=== PATIENT | male | born 1940 | race Hispanic/Latino ===

== ENCOUNTER 2022-01-25 22:31 | Emergency (ER) | payer OTHER ==
[2022-01-25 23:47] LABS: Urine Bacteria <20 /HPF (NONE SEEN); Urine RBC >50 /HPF (NONE SEEN)
[2022-01-25 23:48] LABS: Urine Mucus 1+ /HPF (NONE SEEN)
[2022-01-26 00:19] LABS: Absolute Lymphocytes (CBC) 2.4 K/uL (0.7-4.9); Hematocrit 41.6 % (39.6-49.0); MPV 8.4 fL (7.6-11.3); RBC Red Blood Cell Count 4.51 M/uL (4.33-5.43)
[2022-01-26 00:24] LABS: Protime INR 0.96
[2022-01-26] MEDS ORDERED: NACL 0.9% IRR SOLN 2,000 ML IRR ONE (00:24)
[2022-01-26 00:43] LABS: Potassium 4.4 mmol/L (3.5-5.1)
[2022-01-26] MEDS ORDERED: MAGNESIUM SULFATE 1 gm IVPB 1 GM/100 ML BAG IV ONE (01:39)
[2022-01-26] MEDS ORDERED: TAMSULOSIN 0.4 MG SR CAP ONE (01:39)
--- NOTE | 2022-01-26 02:22 | EDPHYS ---
Physician Documentation [facility] Name: Desean Noland Age: 81 yrs Sex: Male : 1940 Arrival Date: 01/25/2022 Time: 22:35 Bed 20 Private MD: ED Physician Leighton Christensen HPI: 01/26 02:17 This 81 yrs old Male presents to ER via Ambulatory with complaints of Urinary rn Problem. 02:17 The patient presents with urinary symptoms, hematuria. Onset: The symptoms/episode rn began/occurred yesterday. Modifying factors: The symptoms are alleviated by nothing, the symptoms are aggravated by urinating. Associated signs and symptoms: Pertinent negatives: abdominal pain, fever, nausea, vomiting. Severity of symptoms: At their worst the symptoms were mild, in the emergency department the symptoms are unchanged. The patient has experienced similar episodes in the past. The patient has not recently seen a physician. Pt reports peeing blood since yesterday, small amount. Has known bladder stone and hx of kidney stones but does not hurt or feel like kidney stone. Does not take blood thinners. NO trauma.. Historical: - Allergies: 01/25 23:09 Iodine; sm5 - PMHx: 23:09 Hypertension; Kidney stones; sm5 - Immunization history:: Client reports receiving the 2nd dose of the Covid vaccine. - Social history:: Smoking status: Patient/guardian denies using tobacco, but has a distant history of tobacco abuse. - Family history:: not pertinent. - Hospitalizations: : No recent hospitalization is reported. ROS: 01/26 02:17 Constitutional: Negative for fever, chills, and weight loss, Eyes: Negative for injury, rn pain, redness, and discharge, Neck: Negative for injury, pain, and swelling, Cardiovascular: Negative for chest pain, palpitations, and edema, Respiratory: Negative for shortness of breath, cough, wheezing, and pleuritic chest pain, Abdomen/GI: Negative for abdominal pain, nausea, vomiting, diarrhea, and constipation, Back: Negative for injury and pain, : + hematuria MS/Extremity: Negative for injury and deformity, Skin: Negative for injury, rash, and discoloration, Neuro: Negative for headache, weakness, numbness, tingling, and seizure. Exam: 02:17 Constitutional: This is a well developed, well nourished patient who is awake, alert, rn and in no acute distress. Head/Face: Normocephalic, atraumatic. Cardiovascular: Regular rate and rhythm. No pulse deficits. Respiratory: No increased work of breathing, no retractions or nasal flaring. Abdomen/GI: Soft, non-tender Skin: Warm, dry MS/ Extremity: Pulses equal, no cyanosis. Neuro: Awake and alert, GCS 15 Vital Signs: 01/25 23:08 BP 174 / 84; Pulse 62; Resp 17; Temp 98(O); Pulse Ox 97% on R/A; Weight 87.09 kg; 5 Height 5 ft. 6 in. (167.64 cm); Pain 0/10; 01/26 00:07 BP 151 / 66; Pulse 58; Resp 18; Pulse Ox 96% on R/A; 5 02:54 BP 147 / 58; Pulse 63; Resp 17; Pulse Ox 100% on R/A; [facility] 01/25 23:08 Body Mass Index 30.99 (87.09 kg, 167.64 cm) [facility] MDM: 01/25 22:50 Patient medically screened. rn 01/26 02:17 Differential diagnosis: UTI, kidney stone, bladder stone. Data reviewed: vital signs, rn nurses notes, lab test result(s), radiologic studies, CT scan, and as a result, I will discharge patient. Counseling: I had a detailed discussion with the patient and/or guardian regarding: the historical points, exam findings, and any diagnostic results supporting the discharge/admit diagnosis, lab results, radiology results, the need for outpatient follow up, to return to the emergency department if symptoms worsen or persist or if there are any questions or concerns that arise at home. Response to treatment: the patient's symptoms have mildly improved after treatment, and as a result, I will discharge patient. Special discussion: I discussed with the patient/guardian in detail that at this point there is no indication for admission to the hospital. It is understood, however, that if the symptoms persist or worsen the patient needs to return immediately for re-evaluation. ED course: CT shows distal ureteral stone, patient is completely pain free. Hematuria clearing with bladder irrigation. Normal creatinine. Normal WBC. Will dc home with pcp and urology f/u. . 01/25 23:02 Order name: Urine Culture rn 01/25 23:02 Order name: Urine Microscopic Only; Complete Time: 23:49 rn 01/25 23:58 Order name: CBC with Diff; Complete Time: 01:31 rn 01/25 23:58 Order name: Basic Metabolic Panel; Complete Time: 01: rn 01/25 23:58 Order name: Protime (+inr); Complete Time: 01: rn 01/25 23:58 Order name: IV Start; Complete Time: 00:06 rn 01/25 23:58 Order name: Ptt, Activated; Complete Time: 01: rn 01/25 23:58 Order name: CT Stone Protocol rn 01/25 23:58 Order name: Bladder Irrigation; Complete Time: 01:01 rn Administered Medications: 01:43 Drug: Magnesium Sulfate 1 grams Route: IVPB; Infused Over: 1 hrs; Site: right hand; sm5 02:55 Follow up: Response: No adverse reaction; IV Status: Completed infusion; IV Intake: sm5 100ml 01:43 Drug: Flomax (tamsulosin) 0.4 mg Route: PO; sm5 02:11 Follow up: Response: No adverse reaction sm5 Disposition Summary: 01/26/22 02:21 Discharge Ordered Location: Home rn Problem: new rn Symptoms: have improved rn Condition: Stable rn Diagnosis - Calculus of ureter rn - Hematuria, unspecified rn Followup: rn - With: Antwan Barrientos MD - When: As needed - Reason: Recheck today's complaints, Re-evaluation by your physician Discharge Instructions: - Discharge Summary Sheet rn - Hematuria, Adult rn - Kidney Stones rn - Dietary Guidelines to Help Prevent Kidney Stones rn Forms: - Medication Reconciliation Form rn - Thank You Letter rn - Antibiotic furnace erector - Prescription Opioid Use rn Prescriptions: - Tramadol 50 mg Oral Tablet - take 1 tablet by ORAL route every 8 hours as needed; 12 tablet; Refills: 0, rn Product Selection Permitted - Flomax 0.4 mg Oral capsule - take 1 capsule by ORAL route once daily 1/2 hour following the same meal each rn day; 7 capsule; Refills: 0, Product Selection Permitted - cefpodoxime 100 mg Oral Tablet - take 2 tablets by ORAL route every 12 hours for 10 days take with food; 40 rn tablet; Refills: 0, Product Selection Permitted Signatures: Dispatcher [employer] Leighton Adam MD MD rn Joan Evans RN RN [email or web address] Corrections: (The following items were deleted from the chart) 01/25 23:13 23:05 URINALYSIS+U.LAB.BRZ ordered. EDMS EDMS
--- NOTE | 2022-01-26 02:22 | ER ---
Nurse's Notes [facility] Name: Desean Noland Age: 81 yrs Sex: Male : 1940 Arrival Date: 01/25/2022 Time: 22:35 Bed 20 Private MD: Diagnosis: Calculus of ureter;Hematuria, unspecified Presentation: 01/25 23:08 Chief complaint: Patient states: started having blood in his urine and burning around sm5 8am this morning, noticed small blood clots but still able to urinate. Coronavirus screen: Vaccine status: Patient reports receiving the 2nd dose of the covid vaccine. Ebola Screen: No symptoms or risks identified at this time. Initial Sepsis Screen: Does the patient meet any 2 criteria? No. Patient's initial sepsis screen is negative. Does the patient have a suspected source of infection? No. Patient's initial sepsis screen is negative. Risk Assessment: Do you want to hurt yourself or someone else? Patient reports no desire to harm self or others. Onset of symptoms was January 25, 2022. 23:08 Method Of Arrival: Ambulatory [facility] 23:08 Acuity: RAMESH 4 5 Triage Assessment: 23:09 General: Appears in no apparent distress. Behavior is cooperative. Pain: Denies pain. sm5 EENT: No deficits noted. Neuro: No deficits noted. Mejia Agitation-Sedation Scale (RASS): 0 - Alert and Calm Level of Consciousness is awake, alert, obeys commands, Oriented to person, place, time, situation. Cardiovascular: No deficits noted. Capillary refill < 3 seconds Patient's skin is warm and dry. Respiratory: No deficits noted. Airway is patent Trachea midline Respiratory effort is even, unlabored. : Urine is blood tinged, Reports burning with urination. Historical: - Allergies: 23:09 Iodine; sm5 - PMHx: 23:09 Hypertension; Kidney stones; sm5 - Immunization history:: Client reports receiving the 2nd dose of the Covid vaccine. - Social history:: Smoking status: Patient/guardian denies using tobacco, but has a distant history of tobacco abuse. - Family history:: not pertinent. - Hospitalizations: : No recent hospitalization is reported. Screenin:10 Abuse screen: Denies threats or abuse. Denies injuries from another. Nutritional sm5 screening: No deficits noted. Tuberculosis screening: No symptoms or risk factors identified. Fall Risk None identified. Assessment: 23:30 Reassessment: see triage assessment. [facility] 01/26 00:30 Reassessment: No changes from previously documented assessment. Patient and/or family [facility] updated on plan of care and expected duration. Pain level reassessed. 01:30 Reassessment: 3 way catheter irrigation running clear. [facility] 02:54 Reassessment: No changes from previously documented assessment. Patient is alert, [facility] oriented x 3, equal unlabored respirations, skin warm/dry/pink. Vital Signs: 01/25 23:08 BP 174 / 84; Pulse 62; Resp 17; Temp 98(O); Pulse Ox 97% on R/A; Weight 87.09 kg; 5 Height 5 ft. 6 in. (167.64 cm); Pain 0/10; 01/26 00:07 BP 151 / 66; Pulse 58; Resp 18; Pulse Ox 96% on R/A; 5 02:54 BP 147 / 58; Pulse 63; Resp 17; Pulse Ox 100% on R/A; 5 01/25 23:08 Body Mass Index 30.99 (87.09 kg, 167.64 cm) [facility] ED Course: 01/25 22:35 Patient arrived in ED. ja2 22:50 Leighton Christensen MD is Attending Physician. rn 22:55 Joan Evans, FRANCES is Primary Nurse. [facility] 23:09 Triage completed. 5 23:10 Arm band placed on right wrist. 5 23:10 Patient has correct armband on for positive identification. Bed in low position. Call [facility] light in reach. Side rails up X2. Pulse ox on. NIBP on. 23:10 No provider procedures requiring assistance completed. 5 23:10 Urine Culture Sent. sm5 23:10 Urine Microscopic Only Sent. [facility] 01/26 00:06 CBC with Diff Sent. 5 00:06 Basic Metabolic Panel Sent. 5 00:07 Ptt, Activated Sent. 5 00:07 Protime (+inr) Sent. 5 00:07 Inserted saline lock: 20 gauge in right antecubital area, using aseptic technique. [facility] Blood collected. 00:50 CT Stone Protocol In Process Unspecified. EDAK 01:01 3-way catheter inserted, using sterile technique, 16 Fr. [facility] 02:21 Antwan Barrientos MD is Referral Physician. rn 02:[address] catheter removed prior to discharge. sm5 02:55 IV discontinued, intact, bleeding controlled, No redness/swelling at site. Pressure 5 dressing applied. Administered Medications: 01:43 Drug: Magnesium Sulfate 1 grams Route: IVPB; Infused Over: 1 hrs; Site: right hand; sm5 02:55 Follow up: Response: No adverse reaction; IV Status: Completed infusion; IV Intake: sm5 100ml 01:43 Drug: Flomax (tamsulosin) 0.4 mg Route: PO; sm5 02:11 Follow up: Response: No adverse reaction 5 Medication: 01/25 23:10 VIS not applicable for this client. sm5 Intake: 01/26 02:55 IV: 100ml; Total: 100ml. 5 Outcome: 02:21 Discharge ordered by . rn 02:54 Discharged to home ambulatory. sm5 02:54 Condition: stable 02:54 Discharge instructions given to patient, Instructed on discharge instructions, follow up and referral plans. medication usage, Demonstrated understanding of instructions, follow-up care, medications, Prescriptions given X 3. 02:55 Patient left the ED. 5 Signatures: Dispatcher [employer] EDMS Leighton Christensen MD MD rn Alexander, Jessica ja2 Mazur, Sarah, RN RN 5 Corrections: (The following items were deleted from the chart) 01/25 23:13 23:10 URINALYSIS+U.LAB.BRZ drawn and sent. [facility] EDMS
[2022-01-26 03:29] VITALS: TEMP 98
[2022-01-26 03:32] VITALS: BP 147/58; O2SAT 100
--- NOTE | 2022-01-27 12:09 | RAD REPORT ---
EXAM DESCRIPTION: CT - Stone Protocol - 01/26/2022 6:56 am CLINICAL HISTORY: The patient is 81 years old and is Male; hematuria, hx of kidney stones and bladde r stone TECHNIQUE: Axial computed tomography images of the abdomen and pelvis without intravenous contrast. Sagittal and coronal reformatted images were created and reviewed. This CT exam was performed usi ng one or more of the following dose reduction techniques: automated exposure control, adjustment o f the mA and/or kV according to patient size, and/or use of iterative reconstruction technique. COMPARISON: No relevant prior studies available. FINDINGS: Lung bases: Unremarkable. No mass. No consolidation. ABDOMEN: Liver: Numerous thin-walled cysts throughout the liver measuring up to 2 cm. Gallbladder and bile ducts: Unremarkable. No calcified stones. No ductal dilation. Pancreas: Unremarkable. No ductal dilation. Spleen: Unremarkable. No splenomegaly. Adrenals: Unremarkable. No mass. Kidneys and ureters: 9 mm stone in the lower right ureter near the right UVJ. Mild right perinep hric stranding. No hydronephrosis. Nonobstructing calcifications in the kidneys bilaterally. Stomach and bowel: Unremarkable. No obstruction. No mucosal thickening. PELVIS: Appendix: The appendix is normal. Bladder: Large 13 mm stone in the bladder at the right UVJ. Reproductive: Unremarkable as visualized. ABDOMEN and PELVIS: Intraperitoneal space: Unremarkable. No free air. No significant fluid collection. Bones/joints: 7 mm of anterolisthesis of L5 on S1 with bilateral pars defects. Bridging osteophytosis throughout the lumbar spine. No acute fracture. No dislocation. Soft tissues: Unremarkable. Vasculature: Scattered atherosclerotic vascular calcifications. No abdominal aortic aneurysm. Lymph nodes: Unremarkable. No enlarged lymph nodes. IMPRESSION: 1. 9 mm stone in the lower right ureter near the right UVJ. Mild right perinephric str anding. No hydronephrosis. 2. Large 13 mm stone in the bladder at the right UVJ. Electronically signed by: Kody Jackson MD 01/26/2022 1:22 AM CDT Due to temporary technical issues with the PACS/Fluency reporting system, reports are being signed by the in house radiologist without review as a courtesy to ensure prompt reporting. The interpreting r adiologist is fully responsible for the content of the report.
== END 2022-01-26 02:55 | disposition home or self-care (01) ==
LOC: ER 22:31
DX: N20.1 Calculus of ureter (principal); I10 Essential (primary) hypertension; Z87.442 Personal history of urinary calculi; Z91.048 Other nonmedicinal substance allergy status
CPT/HCPCS: 87088; 85025; 87086; 80048; 36415; 85610; 85730; 81015; 76377; 74176; J3475; 96365; 99284

== ENCOUNTER 2022-01-28 15:18 | Emergency (ER) | payer OTHER ==
[2022-01-28 17:14] LABS: Urine Blood 3+ (Negative); Urine Glucose Negative (Negative); Urine Protein 1+ (Negative); Urine Specific Gravity >=1.030 (1.005-1.030); Urine pH 6.5 (5.0-7.0)
[2022-01-28 17:16] LABS: Absolute Lymphocytes (CBC) 2.6 K/uL (0.7-4.9); Hematocrit 40.6 % (39.6-49.0); Lymphocytes % 40.4 % (15.3-44.8); MPV 8.4 fL (7.6-11.3); RBC Red Blood Cell Count 4.36 M/uL (4.33-5.43)
--- NOTE | 2022-01-28 17:23 | RAD REPORT ---
EXAM DESCRIPTION: RAD - Chest Single View - 01/28/2022 4:59 pm CLINICAL HISTORY: hematuria COMPARISON: CHEST PA AND LAT 2 VIEW dated 08/20/2012 FINDINGS: Lines: None. Lungs: No evidence of edema or pneumonia. Pleural: No significant pleural effusions or pneumothorax. Cardiac: Mild cardiomegaly. Bones: No acute fractures. Other: IMPRESSION: No acute cardiopulmonary disease.
[2022-01-28 17:26] LABS: Urine Bacteria <20 /HPF (NONE SEEN); Urine RBC TNTC /HPF (NONE SEEN)
[2022-01-28 17:34] LABS: Albumin 3.8 g/dL (3.4-5.0); Bilirubin Direct 0.2 mg/dL (0-0.2); Bilirubin Total 0.5 mg/dL (0.2-1.0); Magnesium 2.5 mg/dL (1.8-2.4); Protein, Total 7.6 g/dL (6.4-8.2)
[2022-01-28] MEDS ORDERED: LIDOCAINE VISCOUS 2% SOLN 15 ML UDC ONE (18:17)
--- NOTE | 2022-01-28 19:00 | RAD REPORT ---
EXAM DESCRIPTION: US - Renal Ultrasound-Complete - 01/28/2022 6:51 pm CLINICAL HISTORY: hematuria COMPARISON: Stone Protocol dated 01/26/2022 FINDINGS: Both kidneys are normal in size, shape and echotexture. The right kidney measures 13.6 cm. No hydronephrosis, focal mass or perinephric fluid. The left kidney measures 11.3 cm. No hydronephrosis, focal mass or perinephric fluid. The bladder is decompressed via Mai catheter. IMPRESSION: Unremarkable renal sonogram. No evidence of hydronephrosis.
[2022-01-28] MEDS ORDERED: MORPHINE 4 MG/ML SYR ONE (19:33)
[2022-01-28] MEDS ORDERED: ONDANSETRON 4 MG/2 ML VIAL ONE (19:33)
--- NOTE | 2022-01-28 19:39 | ER ---
Nurse's Notes [facility] Name: Desean Noland Age: 81 yrs Sex: Male : 1940 Arrival Date: 01/28/2022 Time: 15:20 Bed 6 Private MD: Sharon Novoa Diagnosis: Calculus of ureter;Hematuria, unspecified Presentation: 01/28 15:39 Chief complaint: Patient states: Was seen in ED on Thursday for blood in urine and was vg1 told to come back if it didn't clear up. Pt states 'there is still blood' and has urine frequency and burning upon urination. Denies NV or ABD pain. Coronavirus screen: Vaccine status: Patient reports receiving the 2nd dose of the covid vaccine. Client denies travel out of the [place] in the last 14 days. Ebola Screen: Patient denies exposure to infectious person. Patient denies travel to an Ebola-affected area in the 21 days before illness onset. Initial Sepsis Screen: Does the patient meet any 2 criteria? No. Patient's initial sepsis screen is negative. Does the patient have a suspected source of infection? No. Patient's initial sepsis screen is negative. Risk Assessment: Do you want to hurt yourself or someone else? Patient reports no desire to harm self or others. Onset of symptoms was January 25, 2022. 15:39 Method Of Arrival: Ambulatory vg1 15:39 Acuity: RAMESH 3 vg1 Triage Assessment: 15:41 General: Appears comfortable, Behavior is calm, cooperative. Pain: Denies pain. : vg1 Reports burning with urination, urinary frequency, blood in urine. Historical: - Allergies: 15:41 Iodine; vg1 - PMHx: 15:41 Hypertension; Kidney stones; vg1 - Immunization history:: Client reports receiving the 2nd dose of the Covid vaccine. - Social history:: Smoking status: Patient denies any tobacco usage or history of. Screenin:17 Abuse screen: Denies threats or abuse. Denies injuries from another. Nutritional jg9 screening: No deficits noted. Tuberculosis screening: No symptoms or risk factors identified. Fall Risk None identified. Assessment: 17:34 Reassessment: No changes from previously documented assessment. Patient and/or family jg9 updated on plan of care and expected duration. Pain level reassessed. Patient is alert, oriented x 3, equal unlabored respirations, skin warm/dry/pink. Patient reports burning around penis hole-esteban just placed. 19:18 Reassessment: Patient and/or family updated on plan of care and expected duration. Pain vc1 level reassessed. Patient is alert, oriented x 3, equal unlabored respirations, skin warm/dry/pink. Patient denies pain at this time. 19:18 Reassessment: 325 mL of urine emptied from urinal-patient was given Lasix prior to jg9 transfusion. Vital Signs: 15:39 BP 136 / 58; Pulse 67; Resp 16; Temp 99.0(TE); Pulse Ox 97% on R/A; Weight 87.09 kg; vg1 Height 5 ft. 6 in. (167.64 cm); Pain 0/10; 18:05 BP 155 / 70; Pulse 61; Resp 15; Pulse Ox 99% ; jl7 19:16 BP 181 / 68; Pulse 58; Resp 15; Pulse Ox 98% ; vc1 19:45 BP 153 / 64; Pulse 59; Resp 16; Pulse Ox 96% ; vc1 20:38 BP 138 / 67; Pulse 60; Resp 17; Pulse Ox 97% ; vc1 15:39 Body Mass Index 30.99 (87.09 kg, 167.64 cm) vg1 ED Course: 15:20 Patient arrived in ED. mr 15:21 Sommer Sharon is Private Physician. mr 15:28 [facility]. cp 15:28 Jack Tellez MD is Attending Physician. cp 15:41 Triage completed. vg1 15:41 Arm band placed on. vg1 16:16 Jesi Tejada, FRANCES is Primary Nurse. jg9 16:30 Client placed on continuous cardiac and pulse oximetry monitoring. NIBP monitoring jl7 applied. 17:01 XRAY Chest (1 view) In Process Unspecified. EDMS 17:17 Patient has correct armband on for positive identification. Bed in low position. Call jg9 light in reach. Side rails up X 1. 17:17 Esteban cath inserted, using sterile technique, 16 Fr., by mn, balloon inflated, to jg9 gravity drainage, urine specimen collected. bleeding noted leaking from around the Esteban-this nurse is waiting for 3 way catheter. 17:45 Esteban cath removed intact, balloon deflated. jg9 17:50 3-way catheter inserted, using sterile technique, 18 Fr. Specimen obtained. Returned jg9 bloody urine. 18:52 US Rp Exam Complete In Process Unspecified. EDMS 19:14 Primary Nurse role handed off by Jesi Tejada RN mw2 19:27 Initiated a transfer with Zahira from [facility]. mw2 20:04 Connected Jack PEREZ with the Doctor from [facility]. mw2 20:14 connected Jack PEREZ with Dr. Dewey from [facility]. mw2 20:28 administrative approval given by Zahira Adames/ patient has been accepted to [facility] mw2 to bed 2161/ Dr. Dewey accepted the patient in transfer/ report to be called to [phone]. 20:36 Laure Elliott RN is Primary Nurse. vc1 21:44 No provider procedures requiring assistance completed. Patient transferred, IV remains vc1 in place. Administered Medications: 19:34 Drug: morphine 4 mg Route: IVP; Infused Over: 4 mins; Site: left antecubital; vc1 19:34 Drug: Zofran (Ondansetron) 4 mg Route: IVP; Site: left antecubital; vc1 20:22 Drug: Rocephin - (cefTRIAXone) 1 grams Route: IVPB; Infused Over: 30 mins; Site: left vc1 antecubital; 20:58 Follow up: Response: No adverse reaction; IV Status: Completed infusion; IV Intake: [id number] 20:36 Drug: NS 0.9% 1000 ml Route: IV; Rate: 75 ml/hr; Site: left antecubital; vc1 20:37 Drug: Flomax (tamsulosin) 0.4 mg Route: PO; vc1 Medication: 17:17 VIS not applicable for this client. jg9 Intake: 20:58 IV: 50ml; Total: 50ml. ll3 Outcome: 19:38 ER care complete, transfer ordered by cp 21:45 Transferred by ground EMS Transfer form completed. vc1 21:45 Condition: good 21:45 Patient left the ED. vc1 Signatures: Dispatcher [employer] EDNC Saeed, Kisha Jack Conteh PA PA cp Leal, Jahala RN RN jl7 Carito, Bety 2 Nichole Thakur, RN RN vg1 Zina Hamilton RN RN ll3 Jesi Tejada RN RN jg9 Calcken, Laure, RN RN vc1 Corrections: (The following items were deleted from the chart) 17:34 17:17 Esteban cath inserted, using sterile technique, 16 Fr., by mn, balloon inflated, to jg9 gravity drainage, urine specimen collected. jg9
--- NOTE | 2022-01-28 19:39 | EDPHYS ---
Physician Documentation [facility] Name: Desean Noland Age: 81 yrs Sex: Male : 1940 Arrival Date: 01/28/2022 Time: 15:20 Bed 6 Private MD: Sharon Novoa ED Physician Jack Tellez HPI: 01/28 16:55 This 81 yrs old Male presents to ER via Ambulatory with complaints of Urinary cp Problem. 16:55 The patient presents with urinary symptoms, hematuria. Onset: The symptoms/episode cp began/occurred 3 day(s) ago. 16:55 Associated signs and symptoms: Pertinent positives: right flank pain. cp Historical: - Allergies: 15:41 Iodine; vg1 - PMHx: 15:41 Hypertension; Kidney stones; vg1 - Immunization history:: Client reports receiving the 2nd dose of the Covid vaccine. - Social history:: Smoking status: Patient denies any tobacco usage or history of. ROS: 17:00 Constitutional: Negative for body aches, chills, fever, poor PO intake. cp 17:00 Cardiovascular: Negative for chest pain, edema, palpitations. cp 17:00 Eyes: Negative for injury, pain, redness, and discharge. cp 17:00 ENT: Negative for drainage from ear(s), ear pain, sore throat, difficulty swallowing, difficulty handling secretions. 17:00 Respiratory: Negative for cough, shortness of breath, wheezing. 17:00 Abdomen/GI: Negative for abdominal pain, vomiting, diarrhea, constipation. 17:00 Back: Positive for flank pain, on the right. 17:00 : Positive for hematuria, Negative for testicular pain 17:00 Neuro: Negative for altered mental status, dizziness, headache, syncope, weakness. 17:00 All other systems are negative. Exam: 17:05 Constitutional: The patient appears in no acute distress, alert, awake, cp non-diaphoretic, non-toxic, well developed, well nourished, uncomfortable. 17:05 Head/Face: Normocephalic, atraumatic. cp 17:05 Eyes: Periorbital structures: appear normal, Conjunctiva: normal, no exudate, no injection, Sclera: no appreciated abnormality, Lids and lashes: appear normal, bilaterally. 17:05 ENT: External ear(s): are unremarkable, Nose: is normal, Mouth: Lips: moist, Oral mucosa: pink and intact, moist, Posterior pharynx: Airway: no evidence of obstruction, patent. 17:05 Neck: ROM/movement: is normal, is supple, without pain, no range of motions limitations. 17:05 Chest/axilla: Inspection: normal, Palpation: is normal, no crepitus, no tenderness. 17:05 Cardiovascular: Rate: normal, Rhythm: regular, Edema: is not appreciated, JVD: is not appreciated. 17:05 Respiratory: the patient does not display signs of respiratory distress, Respirations: normal, no use of accessory muscles, no retractions, labored breathing, is not present, Breath sounds: are clear throughout, no decreased breath sounds, no stridor, no wheezing. 17:05 Abdomen/GI: Inspection: abdomen appears normal, Bowel sounds: active, all quadrants, Palpation: abdomen is soft and non-tender, in all quadrants, rebound tenderness, is not appreciated, involuntary guarding, is not appreciated. 17:05 Neuro: Orientation: to person, place \\T\\ time. Mentation: is normal, Motor: moves all fours, strength is normal, Sensation: is normal. 17:18 ECG was reviewed by the Attending Physician. cp Vital Signs: 15:39 BP 136 / 58; Pulse 67; Resp 16; Temp 99.0(TE); Pulse Ox 97% on R/A; Weight 87.09 kg; vg1 Height 5 ft. 6 in. (167.64 cm); Pain 0/10; 18:05 BP 155 / 70; Pulse 61; Resp 15; Pulse Ox 99% ; jl7 19:16 BP 181 / 68; Pulse 58; Resp 15; Pulse Ox 98% ; vc1 19:45 BP 153 / 64; Pulse 59; Resp 16; Pulse Ox 96% ; vc1 20:38 BP 138 / 67; Pulse 60; Resp 17; Pulse Ox 97% ; vc1 15:39 Body Mass Index 30.99 (87.09 kg, 167.64 cm) vg1 MDM: 16:11 Patient medically screened. cp 20:05 Physician consultation: was contacted at 20:06, regarding consult, patient's condition, cp spoke with DR Rosario, urologist, will consult on patient and requests transfer to services of hospitalist. 20:18 Physician consultation: was contacted at 20:19, regarding regarding transfer, to [facility]. patient's condition, accepting physician will be DR Dewey, hospitalist. 01/28 16:48 Order name: Urine Microscopic Only; Complete Time: 18:31 cp 01/28 18:31 Interpretation: Abnormal: URBC TNTC. 01/28 16:48 Order name: Basic Metabolic Panel; Complete Time: 18:31 cp 01/28 16:48 Order name: CBC with Diff; Complete Time: 17:25 01/28 16:48 Order name: LFT's; Complete Time: 18:31 01/28 16:48 Order name: Magnesium; Complete Time: 18:31 01/28 16:48 Order name: NT PRO-BNP; Complete Time: 18:31 cp 01/28 16:48 Order name: PT-INR; Complete Time: 18:31 01/28 16:48 Order name: XRAY Chest (1 view); Complete Time: 17:25 01/28 17:27 Interpretation: Report reviewed. 01/28 16:48 Order name: Ptt, Activated; Complete Time: 18:31 01/28 16:57 Order name: COVID-19 SARS RT PCR (Document "Date of Onset" if Symptomatic); Complete jg9 Time: 18:01/28 17:14 Order name: Urine Dipstick-Ancillary; Complete Time: 17:25 EDMS 01/28 17:26 Interpretation: Normal except: UBLD 3+; UPROT 1+. 01/28 18:33 Order name: US Rp Exam Complete; Complete Time: 19:01 01/28 16:48 Order name: Urine Dipstick-Ancillary (obtain specimen); Complete Time: 17:38 01/28 16:48 Order name: EKG; Complete Time: 16:49 01/28 16:48 Order name: Cardiac monitoring; Complete Time: 17:22 cp 01/28 16:48 Order name: EKG - Nurse/Tech; Complete Time: 17:22 cp 01/28 16:48 Order name: IV Saline Lock; Complete Time: 17:23 cp 01/28 16:48 Order name: Labs collected and sent; Complete Time: 17:23 cp 01/28 16:48 Order name: O2 Per Protocol; Complete Time: 17:01 cp 01/28 16:48 Order name: O2 Sat Monitoring; Complete Time: 17:01 cp 01/28 16:48 Order name: Mai-Three way: irrigate bladder until clear; Complete Time: 20:23 cp EC:18 Rate is 57 beats/min. Rhythm is regular. OK interval is normal. QRS interval is normal. cp QT interval is normal. T waves are Inverted in lead aVR. Interpreted by me. Reviewed by me. Administered Medications: 19:34 Drug: morphine 4 mg Route: IVP; Infused Over: 4 mins; Site: left antecubital; vc1 19:34 Drug: Zofran (Ondansetron) 4 mg Route: IVP; Site: left antecubital; vc1 20:22 Drug: Rocephin - (cefTRIAXone) 1 grams Route: IVPB; Infused Over: 30 mins; Site: left vc1 antecubital; 20:58 Follow up: Response: No adverse reaction; IV Status: Completed infusion; IV Intake: [id number] 20:36 Drug: NS 0.9% 1000 ml Route: IV; Rate: 75 ml/hr; Site: left antecubital; vc1 20:37 Drug: Flomax (tamsulosin) 0.4 mg Route: PO; vc1 Disposition Summary: 01/28/22 19:38 Transfer Ordered Transfer Location: [facility] cp Reason: Higher level of care cp Condition: Stable cp Problem: an ongoing problem cp Symptoms: have improved cp Accepting Physician: DR Dewey(01/28/22 21:45) vc1 Diagnosis - Calculus of ureter cp - Hematuria, unspecified cp Forms: - Medication Reconciliation Form cp - SBAR form cp Signatures: Dispatcher [employer] EDMS Jack Will PA PA cp Garcia, Victoria RN RN vg1 Laure Elliott RN RN vc1 Zina Hamilton RN ll3 Corrections: (The following items were deleted from the chart) 20:21 19:38 Doctor cp cp 21:45 20:21 DR Dewey cp vc1
[2022-01-28] MEDS ORDERED: CEFTRIAXONE 1000 MG/VIAL ONE (20:24)
[2022-01-28] MEDS ORDERED: NA CHLORIDE 0.9% 50 ML ONE (20:24)
[2022-01-28] MEDS ORDERED: TAMSULOSIN 0.4 MG SR CAP ONE (20:33)
[2022-01-28] MEDS ORDERED: NA CHLORIDE 0.9% 1,000 ML ONE (20:33)
[2022-01-28 22:20] VITALS: TEMP 99
[2022-01-28 22:30] VITALS: BP 138/67; O2SAT 97
--- NOTE | 2022-01-29 07:18 | EKG ---
Test Date: 2022-01-28 Test Time: 17:11:10 Apartment Maintenance Worker: ALONA MEASUREMENT RESULTS: Intervals: Rate: 57 SD: 194 QRSD: 90 QT: 418 QTc: 406 [place]: P: 52 SD: 194 QRS: 66 T: 72 INTERPRETIVE STATEMENTS: Sinus bradycardia with marked sinus arrhythmia Otherwise normal ECG Compared to ECG 06/26/2003 17:13:00 No significant changes Electronically Signed On 01-29-22 07:17:15 CDT by Kofi Robertson
== END 2022-01-28 21:45 | disposition short-term general hospital (02) ==
LOC: ER 15:18
DX: N20.1 Calculus of ureter (principal); I10 Essential (primary) hypertension; Z87.442 Personal history of urinary calculi; Z20.822 Contact with and (suspected) exposure to COVID-19; Z91.048 Other nonmedicinal substance allergy status
CPT/HCPCS: 85025; 80048; 36415; 83735; 85610; 80076; 85730; 83880; 71045; 76770; U0003; J7030; J2405; 81003; 81015; 93005

== ENCOUNTER 2023-01-22 16:48 | Emergency (ER) | payer OTHER ==
--- OUTSIDE RECORDS SUMMARY | 2023-01-22 16:55 | XMS REPORT | Continuity of Care Document ---
:1940 Author Organization [facility] t Address [address] [place] [address] [place] [id number] Care Team Providers Name Role Phone WILLI SWAN Primary Care Physician Unavailable CYNDY FALCON Attending Clinician Unavailable CYNDY DE LA ROSA Attending Clinician Unavailable 2, [facility] Attending Clinician Unavailable Cyndy Du Attending Clinician Doctor Unassigned, [place] Attending Clinician Unavailable Willi Swan NP Attending Clinician TREVIN HERNANDEZ Attending Clinician Unavailable TREVIN HERNANDEZ Attending Clinician Unavailable Trevin Hernandez MD Attending Clinician YONATAN TOUSSAINT Attending Clinician Unavailable Yonatan Leach Attending Clinician ANGELO MADISON Attending Clinician Unavailable Vaccine, [facility] Attending Clinician Unavailable Russel Jane DO Attending Clinician RUSSEL JANE Attending Clinician Unavailable Nurse, Vera Fam Attending Clinician Unavailable INDIA MORSE Attending Clinician Unavailable WILLI SWAN Attending Clinician Unavailable Yanely Carter MD Attending Clinician [phone] Yash Olivia MD Attending Clinician ROMEROYASH Packer NATALYA Attending Clinician Unavailable YANELY CARTER Attending Clinician Unavailable Sharon Ohara MD Attending Clinician [phone] SHARON OHARA Attending Clinician Unavailable Yuniel DANIELS, Jack Attending Clinician Unavailable RAFITA VIZCARRA Attending Clinician Unavailable Nurse, [facility] Pob Immunization Attending Clinician Unavailable HECTOR LUCIA Attending Clinician Unavailable Nathaniel AVELARSW, Simi Cunningham Attending Clinician Unavailable Michael SENIOR PRINCIPAL SOFTWARE ENGINEER, Sophia K Attending Clinician Unavailable Angelo Madison MD Attending Clinician Fidel Siddiqi PT, Randa Attending Clinician Unavailable ABY MEZA Attending Clinician Unavailable Elian Bryson PA-C Attending Clinician Hector Ricks Attending Clinician CYNDY DE LA ROSA Admitting Clinician Unavailable TREVIN HERNANDEZ Admitting Clinician Unavailable YANELY CARTER Admitting Clinician Unavailable WILLI SWAN Admitting Clinician Unavailable Payers Payer Name Policy Type Policy Number Effective Date Expiration Date S [facility] [id number] [facility] 00:00:00 O [facility] [id number] 2016 00:00:00 Problems Condition Condition Condition Status Onset Resolution Last Treating Co mments Source Name Details Category Date Date Treatment Clinician Date Bladder Bladder Disease Active Univers stone stone 2 ity of 00:00: [address] Branch Nephrolith Nephrolith Disease Active [facility] Essential Essential Disease Active Uni vers hypertensi hypertensi 09-06 it y [place], [place] Mixed Mixed Disease Active Univers hyperlipid hyperlipid 09-06 it y of emia emia 00:00: [place] [address] Medical Branch Vitamin D Vitamin D Disease Active Overview: Univers deficiency deficiency 09-06 [place] ity of 00:00: g of this [place] 00 note Medical might be Branch different from the original. 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 09-06 ity of 00:00: [place] 00 [facility] Colon Colon Disease Active Univers polyps polyps 09-06 ity of 00:00: [place] 00 [facility] Allergies, Adverse Reactions, Alerts Allergy Allergy Status Severity Reaction(s) Onset Inactive Treating Comm ents Source Name Type Date Date Clinician Iodine Drug Active Hives [facility]: Medical 00 [place] IODINE DRUG Active High Hives Univers INGREDI 09-06 ity of 00:00: [place] 00 Medical Branch Iodine Propensi Active Hives Univers ty to 09-06 ity of adverse 00:00: [place] reaction 00 [facility] Branch IODINE Allergy Active High Hives [facility] 09[facility]06 [facility] Medical 00 [place] NO KNOWN Allergy Active [facility] Social History Social Habit Start Date Stop Date Quantity Comments Source History of tobacco Cigarette Smoker University of use [facility] Exposure to 2022-09-26 2022-10-06 Not sure [facility] SARS-CoV-2 (event) 00:00:00 10:02:00 [facility] Alcohol intake 2022-10-06 2022-10-06 Current University of 00:00:00 00:00:00 non-drinker of [facility] alcohol Branch (finding) Cigarettes smoked 2022-07-15 2022-07-15 Univers ity of current (pack per 00:00:00 00:00:00 [place] ) - Reported Branch Cigarette 2022-07-15 2022-07-15 University of pack-years 00:00:00 00:00:00 [facility] Tobacco use and 2022-07-15 2022-07-15 Smokeless Universit y of exposure 00:00:00 00:00:00 tobacco non-user [facility] dical [place] Sex Assigned At [address] [facility] k[facility] 00:00:00 00:00:00 [facility] Smoking Status Start Date Stop Date Source Ex-smoker 2022-07-15 00:00:00 2022-07-15 00:00:00 Universi ty of [facility] Medications Ordered Filled Start Stop Current Ordering Indication Dosage Frequency Signature Comments Components Source Medication Medication Date Date Medication? Clinician (SIG) Name Name amLODIPine 2023-0 Yes [id number] 5mg Take 1 Un [facility] 5 mg tablet 2-23 tablet by ity of 00:00: mouth in [place] 00 the Medical morning. Branch losartan 3-0 Yes [id number] 100mg Take 1 Uni vers 100 mg 2-23 tablet by ity of tablet 00:00: mouth in [place] 00 the Medical morning. Branch pravastatin 2023-0 Yes [id number] 40mg Take 1 Univers 40 mg 2-23 tablet by ity of tablet 00:00: mouth at [place] [address] bedtime. Medical Branch amLODIPine 2023-0 Yes [id number] 5mg Take 1 Un [facility] 5 mg tablet 2-23 tablet by ity of 00:00: mouth in [place] the Medical morning. Branch losartan 2023-0 Yes [id number] 100mg Take 1 Uni vers 100 mg 2-23 tablet by ity of tablet 00:00: mouth in [place] the Medical morning. Branch pravastatin 2023-0 Yes [id number] 40mg Take 1 Univers 40 mg 2-23 tablet by ity of tablet 00:00: mouth at [place] [address] bedtime. Medical Branch amLODIPine 3-0 Yes [id number] 5mg Take 1 Un [facility] 5 mg tablet 2-23 tablet by ity of 00:00: mouth in [place] the Medical morning. Branch losartan 3-0 Yes [id number] 100mg Take 1 Uni vers 100 mg 2-23 tablet by ity of tablet 00:00: mouth in [place] the Medical morning. Branch pravastatin 2023-0 Yes [id number] 40mg Take 1 Univers 40 mg 2-23 tablet by ity of tablet 00:00: mouth at [place] [address] bedtime. Medical Branch amLODIPine 3-0 Yes [id number] 5mg Take 1 Un [place] 5 mg tablet 2-23 tablet by ity of 00:00: mouth in [place] the Medical morning. Branch losartan 2023-0 Yes [id number] 100mg Take 1 Uni vers 100 mg 2-23 tablet by ity of tablet 00:00: mouth in [place] 00 the Medical morning. Branch pravastatin 2023-0 Yes [id number] 40mg Take 1 Univers 40 mg 2-23 tablet by ity of tablet 00:00: mouth at [place] [address] bedtime. Medical Branch amLODIPine 2023-0 Yes [id number] 5mg Take 1 Un [place] 5 mg tablet 2-23 tablet by ity of 00:00: mouth in [place] 00 the Medical morning. Branch losartan 3-0 Yes [id number] 100mg Take 1 Uni vers 100 mg 2-23 tablet by ity of tablet 00:00: mouth in [place] 00 the Medical morning. Branch pravastatin 3-0 Yes [id number] 40mg Take 1 Univers 40 mg 2-23 tablet by ity of tablet 00:00: mouth at [place] [address] bedtime. Medical Branch TAMSULOSIN 3-0 Yes [id number] TAKE ONE Univers 0.4 mg 24 1-30 CAPSULE BY ity of hr capsule 00:00: MOUTH [place] 00 EVERY Medical MORNING Branch TAMSULOSIN 3-0 Yes [id number] TAKE ONE Univers 0.4 mg 24 1-30 CAPSULE BY ity of hr capsule 00:00: MOUTH [place] 00 EVERY Medical MORNING Branch TAMSULOSIN 3-0 Yes [id number] TAKE ONE Univers 0.4 mg 24 1-30 CAPSULE BY ity of hr capsule 00:00: MOUTH [place] 00 EVERY Medical MORNING Branch TAMSULOSIN 3-0 Yes [id number] TAKE ONE Univers 0.4 mg 24 1-30 CAPSULE BY ity of hr capsule 00:00: MOUTH [place] 00 EVERY Medical MORNING Branch TAMSULOSIN 3-0 3- No [id number] TAKE ONE Univers 0.4 mg 24 1-30 02-23 CAPSULE BY ity of hr capsule 00:00: 00:00 MOUTH [place] 00 :00 EVERY Medical MORNING Branch TAMSULOSIN 3-0 3- No [id number] TAKE ONE Univers 0.4 mg 24 1-30 02-23 CAPSULE BY ity of hr capsule 00:00: 00:00 [facility] 00 :00 EVERY Medical MORNING Branch tamsulosin 2-0 Yes [id number] .4mg Take 1 Univers 0.4 mg 24 7-29 capsule by ity of hr capsule 00:00: mouth in [facility] as 00 the Medical morning. Branch tamsulosin 2-0 Yes [id number] .4mg Take 1 Univers 0.4 mg 24 7-29 capsule by ity of hr capsule 00:00: mouth in [facility] as 00 the Medical morning. Branch tamsulosin 2-0 Yes [id number] .4mg Take 1 Univers 0.4 mg 24 7-29 capsule by ity of hr capsule 00:00: mouth in [place] 00 the Medical morning. Branch tamsulosin 2022-0 Yes [id number] .4mg Take 1 Univers 0.4 mg 24 7-29 capsule by ity of hr capsule 00:00: mouth in [place] 00 the Medical morning. Branch tamsulosin 2022-0 Yes [id number] .4mg Take 1 Univers 0.4 mg 24 7-29 capsule by ity of hr capsule 00:00: mouth in [place] 00 the Medical morning. Branch tamsulosin 2022-0 Yes [id number] .4mg Take 1 Univers 0.4 mg 24 7-29 capsule by ity of hr capsule 00:00: mouth in [place] 00 the Medical morning. Branch tamsulosin 2022-0 Yes [id number] .4mg Take 1 Univers 0.4 mg 24 7-29 capsule by ity of hr capsule 00:00: mouth in [place] 00 the Medical morning. Branch tamsulosin 2022-0 Yes [id number] .4mg Take 1 Univers 0.4 mg 24 7-29 capsule by ity of hr capsule 00:00: mouth in [place] 00 the Medical morning. Branch tamsulosin 2022-0 Yes [id number] .4mg Take 1 Univers 0.4 mg 24 7-29 capsule by ity of hr capsule 00:00: mouth in [place] 00 the Medical morning. Branch tamsulosin 2022-0 Yes [id number] .4mg Take 1 Univers 0.4 mg 24 7-29 capsule by ity of hr capsule 00:00: mouth in [place] 00 the Medical morning. Branch tamsulosin 2022-0 Yes [id number] .4mg Take 1 Univers 0.4 mg 24 7-29 capsule by ity of hr capsule 00:00: mouth in [place] 00 the Medical morning. Branch tamsulosin 2022-0 Yes [id number] .4mg Take 1 Univers 0.4 mg 24 7-29 capsule by ity of hr capsule 00:00: mouth in [place] 00 the Medical morning. Branch tamsulosin 2022-0 Yes [id number] .4mg Take 1 Univers 0.4 mg 24 7-29 capsule by ity of hr capsule 00:00: mouth in [place] 00 the Medical morning. Branch tamsulosin 2022-0 2023- No [id number] .4mg Take 1 Univers 0.4 mg 24 03-07 capsule by ity of hr capsule 00:00: 00:00 mouth in [place] :00 the Medical morning. Branch HYDROcodone 2022-0 Yes 1 tablet Un shelia -acetaminop 6-27 as needed ity of hen 10-325 00:00: [place] mg tablet 00 Medical Branch HYDROcodone 2022-0 Yes 1 tablet Un shel[facility] -acetaminop 6-27 as needed ity of hen 10-325 00:00: [place] mg tablet 00 Medical Branch HYDROcodone 2022-0 Yes 1 tablet Un shelia -acetaminop 6-27 as needed ity of hen 10-325 00:00: [place] mg tablet 00 Medical Branch HYDROcodone 2022-0 Yes 1 tablet Un shelia -acetaminop 6-27 as needed ity of hen 10-325 00:00: [place] mg tablet 00 Medical Branch HYDROcodone 2022-0 Yes 1 tablet Un shelia -acetaminop 6-27 as needed ity of hen 10-325 00:00: [place] mg tablet 00 Medical Branch HYDROcodone 2022-0 Yes 1 tablet Un [facility] -acetaminop 6-27 as needed ity of hen 10-325 00:00: [place] mg tablet 00 Medical Branch HYDROcodone 2022-0 Yes 1 tablet Un [facility]ia -acetaminop 6-27 as needed ity of hen 10-325 00:00: [place] mg tablet 00 Medical Branch HYDROcodone 2022-0 Yes 1 tablet Un [facility] -acetaminop 6-27 as needed ity of hen 10-325 00:00: [place] mg tablet 00 Medical Branch HYDROcodone 2022-0 Yes 1 tablet Un [facility] -acetaminop 6-27 as needed ity of hen 10-325 00:00: [place] mg tablet 00 Medical Branch HYDROcodone 2022-0 Yes 1 tablet Un shel[place] -acetaminop 6-27 as needed ity of hen 10-325 00:00: [place] mg tablet 00 Medical Branch HYDROcodone 2022-0 Yes 1 tablet Un shelia -acetaminop 6-27 as needed ity of hen 10-325 00:00: [place] mg tablet 00 Medical Branch HYDROcodone 2022-0 2023- No 1 tablet U nivers -acetaminop 6-27 10-02 as needed it y of hen 10-325 00:00: 00:00 [place] mg tablet 00 :00 Medical Branch HYDROcodone 2022- No 1 tablet U nivers -acetaminop 02-03 as needed it y of hen 10-325 00:00: 00:00 [place] mg tablet 00 :00 Medical Branch tamsulosin 2021- No .4mg QD Take [address] [facility] (FLOMAX) 01-31- capsule [facility] mg Cap 00:00: 23:59 (0.4 mg Med ical 24 hr 00 :00 total) by Center capsule mouth daily for 91 days. oxybutynin 2022- No 5mg QD Take [address] [facility] (DITROPAN-X 01-30 tablet (5 Nallely kes L) 5 MG 24 00:00: 23:59 mg total) M edical hr tablet 00 :00 by mouth Center daily. dicyclomine 0 Yes [id number] 20mg Take 1 Univers 20 mg 4-22 tablet by ity of tablet 00:00: mouth ([facility]) Medical times Branch daily as needed for Abdominal pain. dicyclomine 2021-0 Yes [id number] 20mg Take 1 Univers 20 mg 4-22 tablet by ity of tablet 00:00: mouth ([facility]) Medical times Branch daily as needed for Abdominal pain. dicyclomine 2021-0 Yes [id number] 20mg Take 1 Univers 20 mg 4-22 tablet by ity of tablet 00:00: mouth ([facility]) Medical times Branch daily as needed for Abdominal pain. dicyclomine 2021-0 Yes [id number] 20mg Take 1 Univers 20 mg 4-22 tablet by ity of tablet 00:00: mouth ([facility]) Medical times Branch daily as needed for Abdominal pain. dicyclomine 2021-0 Yes [id number] 20mg Take 1 Univers 20 mg 4-22 tablet by ity of tablet 00:00: mouth ([facility]) Medical times Branch daily as needed for Abdominal pain. dicyclomine 2021-0 Yes [id number] 20mg Take 1 Univers 20 mg 4-22 tablet by ity of tablet 00:00: mouth ([facility]) Medical times Branch daily as needed for Abdominal pain. dicyclomine 2021-0 Yes [id number] 20mg Take 1 Univers 20 mg 4-22 tablet by ity of tablet 00:00: mouth (four) Medical times Branch daily as needed for Abdominal pain. dicyclomine 2022-0 Yes [id number] 20mg Take 1 Univers 20 mg 4-22 tablet by ity of tablet 00:00: mouth (four) Medical times Branch daily as needed for Abdominal pain. dicyclomine 2022-0 Yes [id number] 20mg Take 1 Univers 20 mg 4-22 tablet by ity of tablet 00:00: mouth (four) Medical times Branch daily as needed for Abdominal pain. dicyclomine 2022-0 Yes [id number] 20mg Take 1 Univers 20 mg 4-22 tablet by ity of tablet 00:00: mouth () Medical times Branch daily as needed for Abdominal pain. dicyclomine 2022-0 Yes [id number] 20mg Take 1 Univers 20 mg 4-22 tablet by ity of tablet 00:00: mouth ([facility]) Medical times Branch daily as needed for Abdominal pain. dicyclomine 2022-0 Yes [id number] 20mg Take 1 Univers 20 mg 4-22 tablet by ity of tablet 00:00: mouth ([facility]) Medical times Branch daily as needed for Abdominal pain. dicyclomine 2022-0 Yes [id number] 20mg Take 1 Univers 20 mg 4-22 tablet by ity of tablet 00:00: mouth (four) Medical times Branch daily as needed for Abdominal pain. dicyclomine 2022-0 Yes [id number] 20mg Take 1 Univers 20 mg 4-22 tablet by ity of tablet 00:00: mouth (four) Medical times Branch daily as needed for Abdominal pain. dicyclomine 2022-0 Yes [id number] 20mg Take 1 Univers 20 mg 4-22 tablet by ity of tablet 00:00: mouth (four) Medical times Branch daily as needed for Abdominal pain. dicyclomine 2022-0 Yes [id number] 20mg Take 1 Univers 20 mg 4-22 tablet by ity of tablet 00:00: mouth (four) Medical times Branch daily as needed for Abdominal pain. dicyclomine 2022-0 Yes [id number] 20mg Take 1 Univers 20 mg 4-22 tablet by ity of tablet 00:00: [address] (four) Medical times Branch daily as needed for Abdominal pain. dicyclomine 2-0 Yes [id number] 20mg Take 1 Univers 20 mg 4-22 tablet by ity of tablet 00:00: [address] 00 (four) Medical times Branch daily as needed for Abdominal pain. dicyclomine 2021-0 Yes [id number] 20mg Take 1 Univers 20 mg 4-22 tablet by ity of tablet 00:00: [address] (four) Medical times Branch daily as needed for Abdominal pain. dicyclomine 2021-0 Yes [id number] 20mg Take 1 Univers 20 mg 4-22 tablet by ity of tablet 00:00: [address] ([facility]) Medical times Branch daily as needed for Abdominal pain. dicyclomine 2021-0 3- No [id number] 20mg Take 1 Univers 20 mg 4-22 02-23 tablet by ity of tablet 00:00: 00:[address] 00 :00 (four) Medical times Branch daily as needed for Abdominal pain. dicyclomine 2021-0 3- No [id number] 20mg Take 1 Univers 20 mg 4-22 02-23 tablet by ity of tablet 00:00: 00:[address] 00 :00 (four) Medical times Branch daily as needed for Abdominal pain. dicyclomine 2021-0 Yes [id number] 20mg Take 1 Univers 20 mg 4-19 tablet by ity of tablet 00:00: [address] (four) Medical times Branch daily as needed for Abdominal pain. ondansetron 2021-0 Yes [id number] 4mg Take 1 Univers (ZOFRAN) 4 4-19 tablet by ity of mg tablet 00:00: mouth [place] 00 every 8 Medical (eight) Branch hours as needed for Nausea and Vomiting (N/V). tamsulosin 2021-0 Yes [id number] .4mg Take 1 Univers (FLOMAX) 4-19 capsule by ity o f 0.4 mg 24 00:00: mouth [place] hr capsule 00 daily. Medical Branch dicyclomine 2021-0 Yes [id number] 20mg Take 1 Univers 20 mg 4-19 tablet by ity of tablet 00:00: mouth 4 [place] 00 (four) Medical times Branch daily as needed for Abdominal pain. ondansetron 2021-0 Yes [id number] 4mg Take 1 Univers (ZOFRAN) 4 4-19 tablet by ity of mg tablet 00:00: mouth [place] 00 every 8 Medical (eight) Branch hours as needed for Nausea and Vomiting (N/V). tamsulosin 2021-0 Yes [id number] .4mg Take 1 Univers (FLOMAX) 4-19 capsule by ity o f 0.4 mg 24 00:00: mouth [place] hr capsule 00 daily. Medical Branch dicyclomine 2021-0 Yes [id number] 20mg Take 1 Univers 20 mg 4-19 tablet by ity of tablet 00:00: mouth 4 [place] 00 (four) Medical times Branch daily as needed for Abdominal pain. ondansetron 2021-0 Yes [id number] 4mg Take 1 Univers (ZOFRAN) 4 4-19 tablet by ity of mg tablet 00:00: mouth [place] 00 every 8 Medical (eight) Branch hours as needed for Nausea and Vomiting (N/V). tamsulosin 2021-0 Yes [id number] .4mg Take 1 Univers (FLOMAX) 4-19 capsule by ity o f 0.4 mg 24 00:00: mouth [place] hr capsule 00 daily. Medical Branch ondansetron 2021-0 Yes [id number] 4mg Take 1 Univers (ZOFRAN) 4 4-19 tablet by ity of mg tablet 00:00: mouth [place] 00 every 8 Medical (eight) Branch hours as needed for Nausea and Vomiting (N/V). tamsulosin 2021-0 Yes [id number] .4mg Take 1 Univers (FLOMAX) 4-19 capsule by ity o f 0.4 mg 24 00:00: mouth [place] hr capsule 00 daily. Medical Branch ondansetron 2021-0 Yes [id number] 4mg Take 1 Univers (ZOFRAN) 4 4-19 tablet by ity of mg tablet 00:00: mouth [place] 00 every 8 Medical (eight) Branch hours as needed for Nausea and Vomiting (N/V). tamsulosin 2-0 Yes [id number] .4mg Take 1 Univers (FLOMAX) 4-19 capsule by ity o f 0.4 mg 24 00:00: mouth [place] hr capsule 00 daily. Medical Branch ondansetron 2021-0 Yes [id number] 4mg Take 1 Univers (ZOFRAN) 4 4-19 tablet by ity of mg tablet 00:00: mouth [place] 00 every 8 Medical (eight) Branch hours as needed for Nausea and Vomiting (N/V). tamsulosin 2021-0 Yes [id number] .4mg Take 1 Univers (FLOMAX) 4-19 capsule by ity o f 0.4 mg 24 00:00: mouth [place] hr capsule 00 daily. Medical Branch ondansetron 0 Yes [id number] 4mg Take 1 Univers (ZOFRAN) 4 4-19 tablet by ity of mg tablet 00:00: mouth [place] 00 every 8 Medical (eight) Branch hours as needed for Nausea and Vomiting (N/V). ondansetron 2021-0 Yes [id number] 4mg Take 1 Univers (ZOFRAN) 4 4-19 tablet by ity of mg tablet 00:00: mouth [place] 00 every 8 Medical (eight) Branch hours as needed for Nausea and Vomiting (N/V). ondansetron 2021-0 Yes [id number] 4mg Take 1 Univers (ZOFRAN) 4 4-19 tablet by ity of mg tablet 00:00: mouth [place] 00 every 8 Medical (eight) Branch hours as needed for Nausea and Vomiting (N/V). ondansetron 2021-0 Yes [id number] 4mg Take 1 Univers (ZOFRAN) 4 4-19 tablet by ity of mg tablet 00:00: mouth [place] 00 every 8 Medical (eight) Branch hours as needed for Nausea and Vomiting (N/V). ondansetron 2021-0 Yes [id number] 4mg Take 1 Univers (ZOFRAN) 4 4-19 tablet by ity of mg tablet 00:00: mouth [place] 00 every 8 Medical (eight) Branch hours as needed for Nausea and Vomiting (N/V). ondansetron 2-0 Yes [id number] 4mg Take 1 Univers (ZOFRAN) 4 4-19 tablet by ity of mg tablet 00:00: mouth [place] 00 every 8 Medical (eight) Branch hours as needed for Nausea and Vomiting (N/V). ondansetron 2021-0 Yes [id number] 4mg Take 1 Univers (ZOFRAN) 4 4-19 tablet by ity of mg tablet 00:00: mouth [place] 00 every 8 Medical (eight) Branch hours as needed for Nausea and Vomiting (N/V). ondansetron 2-0 Yes [id number] 4mg Take 1 Univers (ZOFRAN) 4 4-19 tablet by ity of mg tablet 00:00: mouth [place] 00 every 8 Medical (eight) Branch hours as needed for Nausea and Vomiting (N/V). ondansetron 2-0 Yes [id number] 4mg Take 1 Univers (ZOFRAN) 4 4-19 tablet by ity of mg tablet 00:00: mouth [place] 00 every 8 Medical (eight) Branch hours as needed for Nausea and Vomiting (N/V). ondansetron 2-0 Yes [id number] 4mg Take 1 Univers (ZOFRAN) 4 4-19 tablet by ity of mg tablet 00:00: mouth [place] 00 every 8 Medical (eight) Branch hours as needed for Nausea and Vomiting (N/V). ondansetron 2-0 Yes [id number] 4mg Take 1 Univers (ZOFRAN) 4 4-19 tablet by ity of mg tablet 00:00: mouth [place] 00 every 8 Medical (eight) Branch hours as needed for Nausea and Vomiting (N/V). ondansetron 2-0 Yes [id number] 4mg Take 1 Univers (ZOFRAN) 4 4-19 tablet by ity of mg tablet 00:00: mouth [place] 00 every 8 Medical (eight) Branch hours as needed for Nausea and Vomiting (N/V). ondansetron 2-0 Yes [id number] 4mg Take 1 Univers (ZOFRAN) 4 4-19 tablet by ity of mg tablet 00:00: mouth [place] 00 every 8 Medical (eight) Branch hours as needed for Nausea and Vomiting (N/V). ondansetron 2022-0 Yes [id number] 4mg Take 1 Univers (ZOFRAN) 4 4-19 tablet by ity of mg tablet 00:00: mouth [place] 00 every 8 Medical (eight) Branch hours as needed for Nausea and Vomiting (N/V). ondansetron 2022-0 Yes [id number] 4mg Take 1 Univers (ZOFRAN) 4 4-19 tablet by ity of mg tablet 00:00: mouth [place] 00 every 8 Medical (eight) Branch hours as needed for Nausea and Vomiting (N/V). ondansetron Yes [id number] 4mg Take 1 Univers (ZOFRAN) 4 4-19 tablet by ity of mg tablet 00:00: mouth [place] 00 every 8 Medical (eight) Branch hours as needed for Nausea and Vomiting (N/V). ondansetron Yes [id number] 4mg Take 1 Univers (ZOFRAN) 4 4-19 tablet by ity of mg tablet 00:00: mouth [place] 00 every 8 Medical (eight) Branch hours as needed for Nausea and Vomiting (N/V). ondansetron 2022- No [id number] 4mg Take 1 Univers (ZOFRAN) 4 4-19 02-23 tablet by ity of mg tablet 00:00: 00:00 mouth [place] 00 :00 every 8 Medical (eight) Branch hours as needed for Nausea and Vomiting (N/V). ondansetron 2022- No [id number] 4mg Take 1 Univers (ZOFRAN) 4 4-19 -23 tablet by ity of mg tablet 00:00: 00:00 mouth [place] 00 :00 every 8 Medical (eight) Branch hours as needed for Nausea and Vomiting (N/V). tamsulosin 2021- No [id number] .4mg Take 1 Univers (FLOMAX) -25 02-29 capsule by ity of 0.4 mg 24 00:00: 00:00 mouth [place] hr capsule 00 :00 daily. Medical Branch ketorolac 2021- No [id number] 10mg Take 1 U nivers 10 mg 4-19 04-25 tablet by ity of tablet 00:00: 04:59 mouth [place] 00 :00 every 6 Medical (six) Branch hours as needed for Pain (scale 4-6) for up to 5 days. ketorolac 2021-0 2021- No [id number] 10mg Take 1 U nivers 10 mg 4-19 04-25 tablet by ity of tablet 00:00: 04:59 mouth [place] 00 :00 every 6 Medical (six) Branch hours as needed for Pain (scale 4-6) for up to 5 days. ketorolac 2022-0 2021- No [id number] 10mg Take 1 U nivers 10 mg 4-19 04-25 tablet by ity of tablet 00:00: 04:59 mouth [place] 00 :00 every 6 Medical (six) Branch hours as needed for Pain (scale 4-6) for up to 5 days. ketorolac 2022-0 2021- No [id number] 10mg Take 1 U nivers 10 mg 4-19 04-25 tablet by ity of tablet 00:00: 04:59 mouth [place] 00 :00 every 6 Medical (six) Branch hours as needed for Pain (scale 4-6) for up to 5 days. dicyclomine 2021-0 2021- No [id number] 20mg Take 1 Univers 20 mg -26 11-22 tablet by ity of tablet 00:00: 00:00 mouth 4 [place] 00 :00 (four) Medical times Branch daily as needed for Abdominal pain. Cholecalcif 2022-0 Yes [id number] 1999U Take 1 [facility] [place], 2-15 tablet by ity of Vitamin D3, 00:00: mouth 2 [place] (VITAMIN 00 (two) Medical D3) 50 mcg times Branch (2,000 daily. unit) tablet Cholecalcif 2022-0 Yes [id number] 1999U Take 1 [facility] [place], 2-15 tablet by [facility] of Vitamin D3, 00:00: mouth 2 [place] (VITAMIN 00 (two) Medical D3) 50 mcg times Branch (2,000 daily. unit) tablet Cholecalcif 2022-0 Yes [id number] 1999U Take 1 [facility] [place], 2-15 tablet by [facility] of Vitamin D3, 00:00: mouth 2 [place] (VITAMIN 00 (two) Medical D3) 50 mcg times Branch (2,000 daily. unit) tablet Cholecalcif 2022-0 Yes [id number] 1999U Take 1 [facility] [place], 2-15 tablet by [facility]y of Vitamin D3, 00:00: mouth 2 [place] (VITAMIN 00 (two) Medical D3) 50 mcg times Branch (2,000 daily. unit) tablet Cholecalcif 2022-0 Yes [id number] 1999U Take 1 [facility] [place], 2-15 tablet by ity of Vitamin D3, 00:00: mouth 2 [place] (VITAMIN 00 (two) Medical D3) 50 mcg times Branch (2,000 daily. unit) tablet Cholecalcif 2022-0 Yes [id number] 1999U Take 1 [facility] [place], 2-15 tablet by [facility]y of Vitamin D3, 00:00: mouth 2 [place] (VITAMIN 00 (two) Medical D3) 50 mcg times Branch (2,000 daily. unit) tablet Cholecalcif 2022-0 Yes [id number] 1999U Take 1 [facility] [place], 2-15 tablet by ity of Vitamin D3, 00:00: mouth 2 [place] (VITAMIN 00 (two) Medical D3) 50 mcg times Branch (2,000 daily. unit) tablet Cholecalcif 2022-0 Yes [id number] 1999U Take 1 [facility] [place], 2-15 tablet by ity of Vitamin D3, 00:00: mouth 2 [place] (VITAMIN 00 (two) Medical D3) 50 mcg times Branch (2,000 daily. unit) tablet Cholecalcif 2022-0 Yes [id number] 1999U Take 1 [facility] [place], 2-15 tablet by [facility]y of Vitamin D3, 00:00: mouth 2 [place] (VITAMIN 00 (two) Medical D3) 50 mcg times Branch (2,000 daily. unit) tablet Cholecalcif 2022-0 Yes [id number] 1999U Take 1 [facility] [place], 2-15 tablet by ity of Vitamin D3, 00:00: mouth 2 [place] (VITAMIN 00 (two) Medical D3) 50 mcg times Branch (2,000 daily. unit) tablet Cholecalcif 2022-0 Yes [id number] 1999U Take 1 [facility] [place], 2-15 tablet by ity of Vitamin D3, 00:00: mouth 2 [place] (VITAMIN 00 (two) Medical D3) 50 mcg times Branch (2,000 daily. unit) tablet Cholecalcif 2022-0 Yes [id number] 1999U Take 1 [facility] [place], 2-15 tablet by ity of Vitamin D3, 00:00: mouth 2 [place] (VITAMIN 00 (two) Medical D3) 50 mcg times Branch (2,000 daily. unit) tablet Cholecalcif 2022-0 Yes [id number] 1999U Take 1 [facility] [place], 2-15 tablet by ity of Vitamin D3, 00:00: mouth 2 [place] (VITAMIN 00 (two) Medical D3) 50 mcg times Branch (2,000 daily. unit) tablet Cholecalcif 2022-0 Yes [id number] 2000U Take 1 [facility] [place], 2-15 tablet by ity of Vitamin D3, 00:00: mouth 2 [place] [facility] (VITAMIN 00 (two) Medical D3) 50 mcg times Branch (2,000 daily. unit) tablet Cholecalcif 2022-0 Yes [id number] Take 1 [facility] [place], 2-15 tablet by [facility]y of Vitamin D3, 00:00: mouth 2 [place] [facility] (VITAMIN 00 (two) Medical D3) 50 mcg times Branch (2,000 daily. unit) tablet Cholecalcif 2022-0 Yes [id number] Take 1 [facility] [place], 2-15 tablet by ity of Vitamin D3, 00:00: mouth 2 [place] [facility] (VITAMIN 00 (two) Medical D3) 50 mcg times Branch (2,000 daily. unit) tablet Cholecalcif 2022-0 Yes [id number] Take 1 [facility] [place], 2-15 tablet by [facility]y of Vitamin D3, 00:00: mouth 2 [place] [facility] (VITAMIN 00 (two) Medical D3) 50 mcg times Branch (2,000 daily. unit) tablet Cholecalcif 2022-0 Yes [id number] Take 1 [facility] [place], 2-15 tablet by [facility]y of Vitamin D3, 00:00: mouth 2 [place] (VITAMIN 00 (two) Medical D3) 50 mcg times Branch (2,000 daily. unit) tablet Cholecalcif 2022-0 Yes [id number] Take 1 [facility] [place], 2-15 tablet by ity of Vitamin D3, 00:00: mouth 2 [place] (VITAMIN 00 (two) Medical D3) 50 mcg times Branch (2,000 daily. unit) tablet Cholecalcif 2022-0 Yes [id number] Take 1 [facility] [place], 2-15 tablet by ity of Vitamin D3, 00:00: mouth 2 [place] [facility] (VITAMIN 00 (two) Medical D3) 50 mcg times Branch (2,000 daily. unit) tablet Cholecalcif 2022-0 Yes [id number] Take 1 [facility] [place], 2-15 tablet by ity of Vitamin D3, 00:00: mouth 2 [place] (VITAMIN 00 (two) Medical D3) 50 mcg times Branch (2,000 daily. unit) tablet Cholecalcif 2022-0 Yes [id number] Take 1 [facility] [place], 2-15 tablet by ity of Vitamin D3, 00:00: mouth 2 [place] (VITAMIN 00 (two) Medical D3) 50 mcg times Branch (2,000 daily. unit) tablet Cholecalcif 2022-0 Yes [id number] 1999U Take 1 [facility] [place], 2-15 tablet by ity of Vitamin D3, 00:00: mouth 2 [place] (VITAMIN 00 (two) Medical D3) 50 mcg times Branch (2,000 daily. unit) tablet Cholecalcif 2022-0 Yes [id number] 1999U Take 1 [facility] [place], 2-15 tablet by ity of Vitamin D3, 00:00: mouth 2 [place] (VITAMIN 00 (two) Medical D3) 50 mcg times Branch (2,000 daily. unit) tablet Cholecalcif 2022-0 Yes [id number] 1999U Take 1 [facility] [place], 2-15 tablet by ity of Vitamin D3, 00:00: mouth 2 [place] [facility] (VITAMIN 00 (two) Medical D3) 50 mcg times Branch (2,000 daily. unit) tablet Cholecalcif 2022-0 Yes [id number] 1999U Take 1 [facility] [place], 2-15 tablet by ity of Vitamin D3, 00:00: mouth 2 [place] [facility] (VITAMIN 00 (two) Medical D3) 50 mcg times Branch (2,000 daily. unit) tablet Cholecalcif 2022-0 Yes [id number] 1999U Take 1 [facility] [place], 2-15 tablet by ity of Vitamin D3, 00:00: mouth 2 [place] (VITAMIN 00 (two) Medical D3) 50 mcg times Branch (2,000 daily. unit) tablet Cholecalcif 2022-0 Yes [id number] 1999U Take 1 [facility] [place], 2-15 tablet by ity of Vitamin D3, 00:00: mouth 2 [place] (VITAMIN 00 (two) Medical D3) 50 mcg times Branch (2,000 daily. unit) tablet calcium 2022-0 2022- No [id number] 500mg Take 1 [facility] carbonate 2-15 06-16 capsule by ity of 500 mg 00:00: 04:59 mouth 2 [place] calcium 00 :00 (two) Medical (1,250 mg) times Branch capsule daily with meals for 120 days. calcium 2022-0 2022- No [id number] 500mg Take 1 [facility] carbonate 2-15 06-16 capsule by [facility] of 500 mg 00:00: 04:59 mouth 2 [place] calcium 00 :00 (two) Medical (1,250 mg) times Branch capsule daily with meals for 120 days. calcium 2021- No [id number] 500mg Take 1 [facility] carbonate 2-15 -16 capsule by [facility] of 500 mg 00:00: 04:59 mouth 2 [place] calcium 00 :00 (two) Medical (1,250 mg) times Branch capsule daily with meals for 120 days. calcium 2021- No [id number] 500mg Take 1 [facility] carbonate 2-15 -16 capsule by [facility] of 500 mg 00:00: 04:59 mouth 2 [place] calcium 00 :00 (two) Medical (1,250 mg) times Branch capsule daily with meals for 120 days. calcium 2021- No [id number] 500mg Take 1 [facility] carbonate 2-15 -16 capsule by [facility] of 500 mg 00:00: 04:59 mouth 2 [place] calcium 00 :00 (two) Medical (1,250 mg) times Branch capsule daily with meals for 120 days. calcium 2021- No [id number] 500mg Take 1 [facility] carbonate 2-15 -16 capsule by [facility] of 500 mg 00:00: 04:59 mouth 2 [place] calcium 00 :00 (two) Medical (1,250 mg) times Branch capsule daily with meals for 120 days. losartan Yes [id number] 100mg Take 1 [facility] 100 mg 2-02 tablet by [facility] of tablet 00:00: mouth [place] 00 daily. Medical [facility] pravastatin 2021-0 Yes [id number] 40mg Take 1 [facility] 40 mg 2-02 tablet by [facility] of tablet 00:00: mouth at [place] 00 bedtime. Medical [facility] amLODIPine 2021-0 Yes [id number] 5mg Take 1 [facility] 5 mg tablet 2-02 tablet by [facility] of 00:00: mouth [place] 00 daily. Medical [facility] losartan 2021-0 Yes [id number] 100mg Take 1 [facility] 100 mg 2-02 tablet by [facility] of tablet 00:00: mouth [place] 00 daily. Medical [facility] pravastatin 0 Yes [id number] 40mg Take 1 [facility] 40 mg 2-02 tablet by [facility] of tablet 00:00: mouth at [place] 00 bedtime. Medical [facility] amLODIPine 0 Yes [id number] 5mg Take 1 [facility] 5 mg tablet 2-02 tablet by [facility] of 00:00: mouth [place] 00 daily. Medical [facility] losartan 2021-0 Yes [id number] 100mg Take 1 [facility] 100 mg 2-02 tablet by [facility] of tablet 00:00: mouth [place] 00 daily. Medical [facility] pravastatin 2021-0 Yes [id number] 40mg Take 1 [facility] 40 mg 2-02 tablet by [facility] of tablet 00:00: mouth at [place] 00 bedtime. Medical [facility] amLODIPine 2021-0 Yes [id number] 5mg Take 1 [facility] 5 mg tablet 2-02 tablet by [facility] of 00:00: mouth [place] 00 daily. Medical [facility] losartan 2021-0 Yes [id number] 100mg Take 1 [facility] 100 mg 2-02 tablet by [facility] of tablet 00:00: mouth [place] 00 daily. Medical [facility] pravastatin 2021-0 Yes [id number] 40mg Take 1 [facility] 40 mg 2-02 tablet by [facility] of tablet 00:00: mouth at [place] 00 bedtime. Medical [facility] amLODIPine 2021-0 Yes [id number] 5mg Take 1 [facility] 5 mg tablet 2-02 tablet by [facility] of 00:00: mouth [place] 00 daily. Medical [facility] losartan 2021-0 Yes [id number] 100mg Take 1 [facility] 100 mg 2-02 tablet by [facility] of tablet 00:00: mouth [place] 00 daily. Medical [facility] pravastatin 2021-0 Yes [id number] 40mg Take 1 [facility] 40 mg 2-02 tablet by [facility] of tablet 00:00: mouth at [place] 00 bedtime. Medical [facility] amLODIPine 2021-0 Yes [id number] 5mg Take 1 [facility] 5 mg tablet 2-02 tablet by [facility] of 00:00: mouth [place] 00 daily. Medical [facility] losartan 2021-0 Yes [id number] 100mg Take 1 [facility] 100 mg 2-02 tablet by [facility] of tablet 00:00: mouth [place] 00 daily. Medical [facility] pravastatin 2021-0 Yes [id number] 40mg Take 1 [facility] 40 mg 2-02 tablet by [facility]y of tablet 00:00: mouth at [place] 00 bedtime. Medical [facility] amLODIPine 2021-0 Yes [id number] 5mg Take 1 [facility] 5 mg tablet 2-02 tablet by [facility] of 00:00: mouth [place] 00 daily. Medical Branch losartan 2021-0 Yes [id number] 100mg Take 1 [facility] 100 mg 2-02 tablet by [facility] of tablet 00:00: mouth [place] 00 daily. Medical [facility] pravastatin 2021-0 Yes [id number] 40mg Take 1 [facility] 40 mg 2-02 tablet by ity of tablet 00:00: mouth at [place] 00 bedtime. Medical [facility] amLODIPine 2021-0 Yes [id number] 5mg Take 1 [facility] 5 mg tablet 2-02 tablet by it[facility] of 00:00: mouth [place] 00 daily. Medical Branch losartan 2021-0 Yes [id number] 100mg Take 1 [facility] 100 mg 2-02 tablet by [facility] of tablet 00:00: mouth [place] 00 daily. Medical [facility] pravastatin 2021-0 Yes [id number] 40mg Take 1 [facility] 40 mg 2-02 tablet by [facility] of tablet 00:00: mouth at [place] 00 bedtime. Medical [facility] amLODIPine 2021-0 Yes [id number] 5mg Take 1 [facility] 5 mg tablet 2-02 tablet by [facility] of 00:00: mouth [place] 00 daily. Medical [facility] losartan 2021-0 Yes [id number] 100mg Take 1 [facility] 100 mg 2-02 tablet by [facility] of tablet 00:00: mouth [place] 00 daily. Medical [facility] pravastatin 2021-0 Yes [id number] 40mg Take 1 [facility] 40 mg 2-02 tablet by [facility] of tablet 00:00: mouth at [place] 00 bedtime. Medical [facility] amLODIPine 2021-0 Yes [id number] 5mg Take 1 [facility] 5 mg tablet 2-02 tablet by [facility] of 00:00: mouth [place] 00 daily. Medical Branch losartan 2021-0 Yes [id number] 100mg Take 1 [facility] 100 mg 2-02 tablet by [facility] of tablet 00:00: mouth [place] 00 daily. Medical [facility] pravastatin 2021-0 Yes [id number] 40mg Take 1 [facility] 40 mg 2-02 tablet by [facility] of tablet 00:00: mouth at [place] 00 bedtime. Medical [facility] amLODIPine 2021-0 Yes [id number] 5mg Take 1 [facility] 5 mg tablet 2-02 tablet by [facility] of 00:00: mouth [place] 00 daily. Medical [facility] losartan 2021-0 Yes [id number] 100mg Take 1 [facility] 100 mg 2-02 tablet by [facility] of tablet 00:00: mouth [place] 00 daily. Medical [facility] pravastatin 2021-0 Yes [id number] 40mg Take 1 [facility] 40 mg 2-02 tablet by [facility] of tablet 00:00: mouth at [place] 00 bedtime. Medical [facility] amLODIPine 2021-0 Yes [id number] 5mg Take 1 [facility] 5 mg tablet 2-02 tablet by [facility] of 00:00: mouth [place] 00 daily. Medical [facility] losartan 2021-0 Yes [id number] 100mg Take 1 [facility] 100 mg 2-02 tablet by [facility] of tablet 00:00: mouth [place] 00 daily. Medical [facility] pravastatin 2021-0 Yes [id number] 40mg Take 1 [facility] 40 mg 2-02 tablet by [facility] of tablet 00:00: mouth at [place] 00 bedtime. Medical [facility] amLODIPine 2021-0 Yes [id number] 5mg Take 1 [facility] 5 mg tablet 2-02 tablet by [facility] of 00:00: mouth [place] 00 daily. Medical [facility] losartan 2021-0 Yes [id number] 100mg Take 1 [facility] 100 mg 2-02 tablet by [facility] of tablet 00:00: mouth [place] 00 daily. [facility] pravastatin 2021-0 Yes [id number] 40mg Take 1 [facility] 40 mg 2-02 tablet by [facility] of tablet 00:00: mouth at [place] 00 bedtime. [facility] amLODIPine 2021-0 Yes [id number] 5mg Take 1 [facility] 5 mg tablet 2-02 tablet by [facility] of 00:00: mouth [place] 00 daily. Medical [facility] losartan 2021-0 Yes [id number] 100mg Take 1 [facility] 100 mg 2-02 tablet by [facility] of tablet 00:00: mouth [place] 00 daily. Medical [facility] pravastatin 2021-0 Yes [id number] 40mg Take 1 [facility] 40 mg 2-02 tablet by [facility] of tablet 00:00: mouth at [place] 00 bedtime. [facility] amLODIPine 2021-0 Yes [id number] 5mg Take 1 [facility] 5 mg tablet 2-02 tablet by [facility] of 00:00: mouth [place] 00 daily. Medical [facility] losartan 2021-0 Yes [id number] 100mg Take 1 [facility] 100 mg 2-02 tablet by [facility] of tablet 00:00: mouth [place] 00 daily. [facility] pravastatin 2021-0 Yes [id number] 40mg Take 1 [facility] 40 mg 2-02 tablet by [facility] of tablet 00:00: mouth at [place] 00 bedtime. Medical [facility] amLODIPine 2022-0 Yes [id number] 5mg Take 1 [facility] 5 mg tablet 2-02 tablet by [facility] of 00:00: mouth [place] 00 daily. Medical [facility] losartan 2021-0 Yes [id number] 100mg Take 1 [facility] 100 mg 2-02 tablet by [facility] of tablet 00:00: mouth [place] 00 daily. [facility] pravastatin 2021-0 Yes [id number] 40mg Take 1 [facility] 40 mg 2-02 tablet by [facility] of tablet 00:00: mouth at [place] 00 bedtime. [facility] amLODIPine 2021-0 Yes [id number] 5mg Take 1 [facility] 5 mg tablet 2-02 tablet by it[facility] of 00:00: mouth [place] 00 daily. Medical [facility] losartan 2021-0 Yes [id number] 100mg Take 1 [facility] 100 mg 2-02 tablet by [facility] of tablet 00:00: mouth [place] 00 daily. Medical [facility] pravastatin 2021-0 Yes [id number] 40mg Take 1 [facility] 40 mg 2-02 tablet by [facility] of tablet 00:00: mouth at [place] 00 bedtime. [facility] amLODIPine 2021-0 Yes [id number] 5mg Take 1 [facility] 5 mg tablet 2-02 tablet by [facility] of 00:00: mouth [place] 00 daily. Medical [facility] losartan 2021-0 Yes [id number] 100mg Take 1 [facility] 100 mg 2-02 tablet by [facility] of tablet 00:00: mouth [place] 00 daily. [facility] pravastatin 2021-0 Yes [id number] 40mg Take 1 [facility] 40 mg 2-02 tablet by [facility] of tablet 00:00: mouth at [place] 00 bedtime. [facility] amLODIPine 2021-0 Yes [id number] 5mg Take 1 [facility] 5 mg tablet 2-02 tablet by [facility] of 00:00: mouth [place] 00 daily. [facility] losartan 2021-0 Yes [id number] 100mg Take 1 [facility] 100 mg 2-02 tablet by [facility] of tablet 00:00: mouth [place] 00 daily. [facility] pravastatin 2021-0 Yes [id number] 40mg Take 1 [facility] 40 mg 2-02 tablet by [facility] of tablet 00:00: mouth at [place] 00 bedtime. [facility] amLODIPine 2021-0 Yes [id number] 5mg Take 1 [facility] 5 mg tablet 2-02 tablet by [facility] of 00:00: mouth [place] 00 daily. [facility] losartan 2021-0 Yes [id number] 100mg Take 1 [facility] 100 mg 2-02 tablet by [facility] of tablet 00:00: mouth [place] 00 daily. [facility] pravastatin 2021-0 Yes [id number] 40mg Take 1 [facility] 40 mg 2-02 tablet by [facility] of tablet 00:00: mouth at [place] 00 bedtime. [facility] amLODIPine 2021-0 Yes [id number] 5mg Take 1 [facility] 5 mg tablet 2-02 tablet by [facility] of 00:00: mouth [place] 00 daily. [facility] losartan 2021-0 Yes [id number] 100mg Take 1 [facility] 100 mg 2-02 tablet by [facility] of tablet 00:00: mouth [place] 00 daily. [facility] pravastatin 2021-0 Yes [id number] 40mg Take 1 [facility] 40 mg 2-02 tablet by [facility] of tablet 00:00: mouth at [place] 00 bedtime. [facility] amLODIPine 2021-0 Yes [id number] 5mg Take 1 [facility] 5 mg tablet 2-02 tablet by [facility] of 00:00: mouth [place] 00 daily. [facility] losartan 2021-0 Yes [id number] 100mg Take 1 [facility] vers 100 mg 2-02 tablet by [facility] of tablet 00:00: mouth [place] 00 daily. [facility] pravastatin 2021-0 Yes [id number] 40mg Take 1 [facility] 40 mg 2-02 tablet by [facility] of tablet 00:00: mouth at [place] 00 bedtime. [facility] amLODIPine 2021-0 Yes [id number] 5mg Take 1 [facility] 5 mg tablet 2-02 tablet by [facility] of 00:00: mouth [place] 00 daily. [facility] losartan 2021-0 Yes [id number] 100mg Take 1 [facility] vers 100 mg 2-02 tablet by [facility] of tablet 00:00: mouth [place] 00 daily. [facility] pravastatin 2021-0 Yes [id number] 40mg Take 1 [facility] 40 mg 2-02 tablet by [facility] of tablet 00:00: mouth at [place] 00 bedtime. [facility] amLODIPine 2021-0 Yes [id number] 5mg Take 1 [facility] 5 mg tablet 2-02 tablet by [facility] of 00:00: mouth [place] 00 daily. [facility] losartan 2021-0 3- No [id number] 100mg Take 1 [facility] 100 mg 2-02 -23 tablet by [facility] of tablet 00:00: 00:00 mouth [place] 00 :00 daily. Medical [facility] pravastatin 2021-2022- No [id number] 40mg Take 1 [facility] 40 mg 09-11 tablet by [facility] of tablet 00:00: 00:00 mouth at [place] 00 :00 bedtime. [facility] amLODIPine 2022- No [id number] 5mg Take 1 [facility] 5 mg tablet 09-11 tablet by it y of 00:00: 00:00 mouth [place] 00 :00 daily. Medical [facility] losartan 2021-2022- No [id number] 100mg Take 1 [facility] 100 mg 09-11 tablet by [facility] of tablet 00:00: 00:00 mouth [place] 00 :00 daily. Medical Branch pravastatin 2021-2022- No [id number] 40mg Take 1 [facility] 40 mg 09-11 tablet by ity of tablet 00:00: 00:00 mouth at [place] 00 :00 bedtime. Medical Branch amLODIPine 2022- No [id number] 5mg Take 1 [facility] n[facility] 5 mg tablet 09-11 tablet by it y of 00:00: 00:00 mouth [place] 00 :00 daily. Medical Branch Immunizations Ordered Filled Immunization Date Status Comments [facility] e Immunization Name Name Influenza Virus 2022-04-28 Completed [facility] of Vaccine,quad 00:00:00 [place] [facility] [place] 65+ Influenza Virus 2022-04-28 Completed [facility] of Vaccine,quad 00:00:00 [place] [facility] Im,[facility] [place] 65+ SARS-COV-2 COVID-19 2022-04-28 Completed Unive rsity of CRICKET-SUCROSE 00:00:00 [place] [facility] VACCINE 12 YRS+, Branch BIVALENT 0.3ML, IM, (PFIZER ERVIN TOP BOOSTER) Influenza Virus 2022-04-28 Completed [facility] Vaccine,quad 00:00:00 [place] [facility] Im,preserve Free [facility] 65+ SARS-COV-2 COVID-19 2022-04-28 Completed Un[facility] rsity of CRICKET-SUCROSE 00:00:00 [place] [facility] VACCINE 12 YRS+, Branch BIVALENT 0.3ML, IM, (PFIZER ERVIN TOP BOOSTER) Influenza Virus 2022-04-28 Completed [facility] of Vaccine,quad 00:00:00 [place] [facility] Im,preserve Free [facility] 65+ SARS-COV-2 COVID-19 2022-04-28 Completed Unive rsity of CRICKET-SUCROSE 00:00:00 [place] [facility] VACCINE 12 YRS+, Branch BIVALENT 0.3ML, IM, (PFIZER ERVIN TOP BOOSTER) Influenza Virus 2022-04-28 Completed [facility] of Vaccine,quad 00:00:00 [place] [facility] Im,preserve Free [facility] 65+ SARS-COV-2 COVID-19 2022-04-28 Completed Unive rsity of CRICKET-SUCROSE 00:00:00 [place] [facility] VACCINE 12 YRS+, Branch BIVALENT 0.3ML, IM, (PFIZER ERVIN TOP BOOSTER) Influenza Virus 2022-04-28 Completed [facility] of Vaccine,quad 00:00:00 [place] [facility] Im,preserve Free [facility] 65+ SARS-COV-2 COVID-19 2022-04-28 Completed Unive rsity of CRICKET-SUCROSE 00:00:00 [place] [facility] VACCINE 12 YRS+, Branch BIVALENT 0.3ML, IM, (PFIZER ERVIN TOP BOOSTER) Influenza Virus 2022-04-28 Completed [facility] of Vaccine,quad 00:00:00 [place] [facility] Im,preserve Free [facility] 65+ SARS-COV-2 COVID-19 2022-04-28 Completed Un[facility] rsity of CRICKET-SUCROSE 00:00:00 [place] [facility] VACCINE 12 YRS+, Branch BIVALENT 0.3ML, IM, (PFIZER ERVIN TOP BOOSTER) Influenza Virus 2022-04-28 Completed [facility] of Vaccine,quad 00:00:00 [place] [facility] Im,preserve Free [facility] 65+ SARS-COV-2 COVID-19 2022-04-28 Completed Unive rsity of CRICKET-SUCROSE 00:00:00 [place] [facility] VACCINE 12 YRS+, Branch BIVALENT 0.3ML, IM, (PFIZER ERVIN TOP BOOSTER) Influenza Virus 2022-04-28 Completed [facility] of Vaccine,quad 00:00:00 [place] [facility] Im,preserve Free [facility] 65+ SARS-COV-2 COVID-19 2022-04-28 Completed Unive rsity of CRICKET-SUCROSE 00:00:00 [place] [facility] VACCINE 12 YRS+, Branch BIVALENT 0.3ML, IM, (PFIZER ERVIN TOP BOOSTER) Influenza Virus 2022-04-28 Completed [facility] of Vaccine,quad 00:00:00 [place] [facility] Im,preserve Free Branch 65+ SARS-COV-2 COVID-19 2022-04-28 Completed Unive rsity of CRICKET-SUCROSE 00:00:00 [place] [facility] VACCINE 12 YRS+, Branch BIVALENT 0.3ML, IM, (PFIZER ERVIN TOP BOOSTER) Influenza Virus 2022-04-28 Completed [facility] of Vaccine,quad 00:00:00 [place] [facility] Im,preserve Free Branch 65+ SARS-COV-2 COVID-19 2022-04-28 Completed Unive rsity of CRICKET-SUCROSE 00:00:00 [place] [facility] VACCINE 12 YRS+, Branch BIVALENT 0.3ML, IM, (PFIZER ERVIN TOP BOOSTER) Influenza Virus 2022-04-28 Completed [facility] of Vaccine,quad 00:00:00 [place] [facility] Im,preserve Free Branch 65+ SARS-COV-2 COVID-19 2022-04-28 Completed Unive rsity of CRICKET-SUCROSE 00:00:00 [place] [facility] VACCINE 12 YRS+, Branch BIVALENT 0.3ML, IM, (PFIZER ERVIN TOP BOOSTER) Influenza Virus 2022-04-28 Completed [facility] of Vaccine,quad 00:00:00 [place] [facility] Im,preserve Free Branch 65+ SARS-COV-2 COVID-19 2022-04-28 Completed Unive rsity of CRICKET-SUCROSE 00:00:00 [place] [facility] VACCINE 12 YRS+, Branch BIVALENT 0.3ML, IM, (PFIZER ERVIN TOP BOOSTER) Influenza Virus 2022-04-28 Completed [facility] of Vaccine,quad 00:00:00 [place] [facility] Im,preserve Free Branch 65+ SARS-COV-2 COVID-19 2022-04-28 Completed Unive rsity of CRICKET-SUCROSE 00:00:00 [place] [facility] VACCINE 12 YRS+, Branch BIVALENT 0.3ML, IM, (PFIZER ERVIN TOP BOOSTER) Influenza Virus 2022-04-28 Completed [facility] of Vaccine,quad 00:00:00 [place] [facility] Im,preserve Free Branch 65+ SARS-COV-2 COVID-19 2022-04-28 Completed Un[facility] rsity of CRICKET-SUCROSE 00:00:00 [place] [facility] VACCINE 12 YRS+, Branch BIVALENT 0.3ML, IM, (PFIZER ERVIN TOP BOOSTER) Influenza Virus 2022-04-28 Completed [facility] of Vaccine,quad 00:00:00 [place] [facility] Im,preserve Free Branch 65+ SARS-COV-2 COVID-19 2022-04-28 Completed Unive rsity of CRICKET-SUCROSE 00:00:00 [place] [facility] VACCINE 12 YRS+, Branch BIVALENT 0.3ML, IM, (PFIZER ERVIN TOP BOOSTER) Influenza Virus 2022-04-28 Completed [facility] of Vaccine,quad 00:00:00 [place] [facility] Im,preserve Free Branch 65+ SARS-COV-2 COVID-19 2022-04-28 Completed Unive rsity of CRICKET-SUCROSE 00:00:00 [place] [facility] VACCINE 12 YRS+, Branch BIVALENT 0.3ML, IM, (PFIZER ERVIN TOP BOOSTER) Influenza Virus 2022-04-28 Completed [facility] of Vaccine,quad 00:00:00 [place] [facility] Im,preserve Free Branch 65+ SARS-COV-2 COVID-19 2022-04-28 Completed Unive rsity of CRICKET-SUCROSE 00:00:00 [place] [facility] VACCINE 12 YRS+, Branch BIVALENT 0.3ML, IM, (PFIZER ERVIN TOP BOOSTER) Influenza Virus 2022-04-28 Completed [facility] of Vaccine,quad 00:00:00 [place] [facility] Im,preserve Free Branch 65+ SARS-COV-2 COVID-19 2022-04-28 Completed Unive rsity of CRICKET-SUCROSE 00:00:00 [place] [facility] VACCINE 12 YRS+, Branch BIVALENT 0.3ML, IM, (PFIZER ERVIN TOP BOOSTER) Influenza Virus 2022-04-28 Completed [facility] of Vaccine,quad 00:00:00 [place] [facility] Im,preserve Free Branch 65+ SARS-COV-2 COVID-19 2022-04-28 Completed Unive rsity of CRICKET-SUCROSE 00:00:00 [place] [facility] VACCINE 12 YRS+, Branch BIVALENT 0.3ML, IM, (PFIZER ERVIN TOP BOOSTER) Influenza Virus 2022-04-28 Completed [facility] of Vaccine,quad 00:00:00 [place] [facility] Im,preserve Free Branch 65+ SARS-COV-2 COVID-19 2022-04-28 Completed Unive rsity of CRICKET-SUCROSE 00:00:00 [place] [facility] VACCINE 12 YRS+, Branch BIVALENT 0.3ML, IM, (PFIZER ERVIN TOP BOOSTER) SARS-COV-2 COVID-19 2021-11-15 Completed Unive rsity of PFIZER CRICKET-SUCROSE 00:00:00 [place] [facility] VACCINE (ERVIN TOP) Branch SARS-COV-2 COVID-19 2021-11-15 Completed Unive rsity of PFIZER CRICKET-SUCROSE 00:00:00 [place] [facility] VACCINE (ERVIN TOP) Branch SARS-COV-2 COVID-19 2021-11-15 Completed Unive rsity of PFIZER CRICKET-SUCROSE 00:00:00 [place] [facility] VACCINE (ERVIN TOP) Branch SARS-COV-2 COVID-19 2021-11-15 Completed Unive rsity of PFIZER CRICKET-SUCROSE 00:00:00 [place] [facility] VACCINE (ERVIN TOP) Branch SARS-COV-2 COVID-19 2021-11-15 Completed Unive rsity of PFIZER CRICKET-SUCROSE 00:00:00 [place] [facility] VACCINE (ERVIN TOP) Branch SARS-COV-2 COVID-19 2021-11-15 Completed Unive rsity of PFIZER CRICKET-SUCROSE 00:00:00 [place] [facility] VACCINE (ERVIN TOP) Branch SARS-COV-2 COVID-19 2021-11-15 Completed Unive rsity of PFIZER CRICKET-SUCROSE 00:00:00 [place] [facility] VACCINE (ERVIN TOP) Branch SARS-COV-2 COVID-19 2021-11-15 Completed Unive rsity of PFIZER CRICKET-SUCROSE 00:00:00 [place] [facility] VACCINE (ERVIN TOP) Branch SARS-COV-2 COVID-19 2021-11-15 Completed Unive rsity of PFIZER CRICKET-SUCROSE 00:00:00 [place] [facility] VACCINE (ERVIN TOP) Branch SARS-COV-2 COVID-19 2021-11-15 Completed Unive rsity of PFIZER CRICKET-SUCROSE 00:00:00 [place] [facility] VACCINE (ERVIN TOP) Branch SARS-COV-2 COVID-19 2021-11-15 Completed Unive rsity of PFIZER CRICKET-SUCROSE 00:00:00 [place] [facility] VACCINE (ERVIN TOP) Branch SARS-COV-2 COVID-19 2021-11-15 Completed [facility] PFIZER CRICKET-SUCROSE 00:00:00 [facility]INE (ERVIN TOP) [facility] SARS-COV-2 COVID-19 2021-11-15 Completed [facility] PFIZER CRICKET-SUCROSE 00:00:00 [facility]INE (ERVIN TOP) [facility] SARS-COV-2 COVID-19 2021-11-15 Completed [facility] PFIZER CRICKET-SUCROSE 00:00:00 [facility]INE (ERVIN TOP) [facility] SARS-COV-2 COVID-19 2021-11-15 Completed [facility] PFIZER CRICKET-SUCROSE 00:00:00 [facility]INE (ERVIN TOP) [facility] SARS-COV-2 COVID-19 2021-11-15 Completed [facility] PFIZER CRICKET-SUCROSE 00:00:00 [facility]INE (ERVIN TOP) [facility] SARS-COV-2 COVID-19 2021-11-15 Completed [facility] PFIZER CRICKET-SUCROSE 00:00:00 [facility]INE (ERVIN TOP) [facility] SARS-COV-2 COVID-19 2021-11-15 Completed [facility] PFIZER CRICKET-SUCROSE 00:00:00 [facility]INE (ERVIN TOP) [facility] SARS-COV-2 COVID-19 2021-11-15 Completed [facility] PFIZER CRICKET-SUCROSE 00:00:00 [facility]INE (ERVIN TOP) [facility] SARS-COV-2 COVID-19 2021-11-15 Completed [facility] PFIZER CRICKET-SUCROSE 00:00:00 [facility]INE (ERVIN TOP) [facility] SARS-COV-2 COVID-19 2021-11-15 Completed [facility] PFIZER CRICKET-SUCROSE 00:00:00 [facility]INE (ERVIN TOP) [facility] SARS-COV-2 COVID-19 2021-11-15 Completed [facility] PFIZER CRICKET-SUCROSE 00:00:00 [facility]INE (ERVIN TOP) [facility] SARS-COV-2 COVID-19 2021-11-15 Completed [facility] PFIZER CRICKET-SUCROSE 00:00:00 [facility]INE (ERVIN TOP) [facility] SARS-COV-2 COVID-19 2021-11-15 Completed [facility] PFIZER CRICKET-SUCROSE 00:00:00 [facility]INE (ERVIN TOP) [facility] SARS-COV-2 COVID-19 2021-11-15 Completed [facility] PFIZER CRICKET-SUCROSE 00:00:00 [facility]INE (ERVIN TOP) [facility] SARS-COV-2 COVID-19 2021-11-15 Completed [facility] PFIZER CRICKET-SUCROSE 00:00:00 [facility]INE (ERVIN TOP) [facility] SARS-COV-2 COVID-19 2021-11-15 Completed [facility] PFIZER CRICKET-SUCROSE 00:00:00 [facility]INE (ERVIN TOP) [facility] SARS-COV-2 COVID-19 2021-11-15 Completed [facility] PFIZER CRICKET-SUCROSE 00:00:00 [facility]INE (ERVIN TOP) [facility] Influenza High Dose 2021-05-31 Completed [facility] 00:00:00 [facility] Influenza High Dose 2021-05-31 Completed [facility] 00:00:00 [facility] Influenza High Dose 2021-05-31 Completed [facility] 00:00:00 [facility] Influenza High Dose 2021-05-31 Completed [facility] 00:00:00 [facility] Influenza High Dose 2021-05-31 Completed [facility] 00:00:00 [facility] Influenza High Dose 2021-05-31 Completed [facility] 00:00:00 [facility] Influenza High Dose 2021-05-29 Completed [facility] 00:00:00 [facility] Influenza High Dose 2021-05-29 Completed [facility] 00:00:00 [facility] Influenza High Dose 2021-05-29 Completed [facility] 00:00:00 [facility] Influenza High Dose 2021-05-29 Completed [facility] 00:00:00 [facility] Influenza High Dose 2021-05-29 Completed [facility] 00:00:00 [facility] Influenza High Dose 2021-05-29 Completed [facility] 00:00:00 [facility] Influenza High Dose 2021-05-29 Completed [facility] 00:00:00 [facility] Influenza High Dose 2021-05-29 Completed [facility] 00:00:00 [facility] Influenza High Dose 2021-05-29 Completed [facility] 00:00:00 [facility] Influenza High Dose 2021-05-29 Completed [facility] 00:00:00 [facility] Influenza High Dose 2021-05-29 Completed [facility] 00:00:00 [facility] Influenza High Dose 2021-05-29 Completed [facility] 00:00:00 [facility] Influenza High Dose 2021-05-29 Completed [facility] 00:00:00 [facility] Influenza High Dose 2021-05-29 Completed [facility] 00:00:00 [facility] Influenza High Dose 2021-05-29 Completed [facility] 00:00:00 [facility] Influenza High Dose 2021-05-29 Completed [facility] 00:00:00 [facility] Influenza High Dose 2021-05-29 Completed [facility] 00:00:00 [facility] Influenza High Dose 2021-05-29 Completed [facility] 00:00:00 [facility] Influenza High Dose 2021-05-29 Completed [facility] 00:00:00 [facility] Influenza High Dose 2021-05-29 Completed [facility] 00:00:00 [facility] Influenza High Dose 2021-05-29 Completed [facility] 00:00:00 [facility] Influenza High Dose 2021-05-29 Completed [facility] 00:00:00 [facility] Influenza High Dose 2021-05-29 Completed [facility] 00:00:00 [facility] Influenza High Dose 2021-05-29 Completed [facility] 00:00:00 [facility] Influenza High Dose 2021-05-29 Completed [facility] 00:00:00 [facility] Influenza High Dose 2021-05-29 Completed [facility] 00:00:00 [facility] Influenza High Dose 2021-05-29 Completed [facility] 00:00:00 [facility] Influenza High Dose 2021-05-29 Completed [facility] 00:00:00 [facility] SARS-COV-2 COVID-19 2021-05-14 Completed [facility] PFIZER VACCINE 00:00:00 [facility] SARS-COV-2 COVID-19 2021-05-14 Completed [facility] PFIZER VACCINE 00:00:00 [facility] SARS-COV-2 COVID-19 2021-05-14 Completed [facility] PFIZER VACCINE 00:00:00 [facility] SARS-COV-2 COVID-19 2021-05-14 Completed [facility] PFIZER VACCINE 00:00:00 [facility] SARS-COV-2 COVID-19 2021-05-14 Completed [facility] PFIZER VACCINE 00:00:00 [facility] SARS-COV-2 COVID-19 2021-05-14 Completed [facility] PFIZER VACCINE 00:00:00 [facility] SARS-COV-2 COVID-19 2021-05-14 Completed [facility] PFIZER VACCINE 00:00:00 [facility] SARS-COV-2 COVID-19 2021-05-14 Completed [facility] PFIZER VACCINE 00:00:00 [facility] SARS-COV-2 COVID-19 2021-05-14 Completed [facility] PFIZER VACCINE 00:00:00 [facility] SARS-COV-2 COVID-19 2021-05-14 Completed [facility] PFIZER VACCINE 00:00:00 [facility] SARS-COV-2 COVID-19 2021-05-14 Completed [facility] PFIZER VACCINE 00:00:00 [facility] SARS-COV-2 COVID-19 2021-05-14 Completed [facility] PFIZER VACCINE 00:00:00 [facility] SARS-COV-2 COVID-19 2021-05-14 Completed [facility] PFIZER VACCINE 00:00:00 [facility] SARS-COV-2 COVID-19 2021-05-14 Completed [facility] PFIZER VACCINE 00:00:00 [facility] SARS-COV-2 COVID-19 2021-05-14 Completed [facility] PFIZER VACCINE 00:00:00 [facility] SARS-COV-2 COVID-19 2021-05-14 Completed [facility] PFIZER VACCINE 00:00:00 [facility] SARS-COV-2 COVID-19 2021-05-14 Completed [facility] PFIZER VACCINE 00:00:00 [facility] SARS-COV-2 COVID-19 2021-05-14 Completed [facility] PFIZER VACCINE 00:00:00 [facility] SARS-COV-2 COVID-19 2021-05-14 Completed [facility] PFIZER VACCINE 00:00:00 [facility] SARS-COV-2 COVID-19 2021-05-14 Completed [facility] PFIZER VACCINE 00:00:00 [facility] SARS-COV-2 COVID-19 2021-05-14 Completed [facility] PFIZER VACCINE 00:00:00 [facility] SARS-COV-2 COVID-19 2021-05-14 Completed [facility] PFIZER VACCINE 00:00:00 [facility] SARS-COV-2 COVID-19 2021-05-14 Completed [facility] PFIZER VACCINE 00:00:00 [facility] SARS-COV-2 COVID-19 2021-05-14 Completed [facility] PFIZER VACCINE 00:00:00 [facility] SARS-COV-2 COVID-19 2021-05-14 Completed [facility] PFIZER VACCINE 00:00:00 [facility] SARS-COV-2 COVID-19 2021-05-14 Completed [facility] PFIZER VACCINE 00:00:00 [facility] SARS-COV-2 COVID-19 2021-05-14 Completed [facility] PFIZER VACCINE 00:00:00 [facility] SARS-COV-2 COVID-19 2021-05-14 Completed [facility] PFIZER VACCINE 00:00:00 [facility] SARS-COV-2 COVID-19 2020-09-21 Completed [facility] PFIZER VACCINE 00:00:00 [facility] SARS-COV-2 COVID-19 2020-09-21 Completed [facility] PFIZER VACCINE 00:00:00 [facility] SARS-COV-2 COVID-19 2020-09-21 Completed [facility] PFIZER VACCINE 00:00:00 [facility] SARS-COV-2 COVID-19 2020-09-21 Completed [facility] PFIZER VACCINE 00:00:00 [facility] SARS-COV-2 COVID-19 2020-09-21 Completed [facility] PFIZER VACCINE 00:00:00 [facility] SARS-COV-2 COVID-19 2020-09-21 Completed [facility] PFIZER VACCINE 00:00:00 [facility] SARS-COV-2 COVID-19 2020-09-21 Completed [facility] PFIZER VACCINE 00:00:00 [facility] SARS-COV-2 COVID-19 2020-09-21 Completed [facility] PFIZER VACCINE 00:00:00 [facility] SARS-COV-2 COVID-19 2020-09-21 Completed [facility] PFIZER VACCINE 00:00:00 [facility] SARS-COV-2 COVID-19 2020-09-21 Completed [facility] PFIZER VACCINE 00:00:00 [facility] SARS-COV-2 COVID-19 2020-09-21 Completed [facility] PFIZER VACCINE 00:00:00 [facility] SARS-COV-2 COVID-19 2020-09-21 Completed [facility] PFIZER VACCINE 00:00:00 [facility] SARS-COV-2 COVID-19 2020-09-21 Completed [facility] PFIZER VACCINE 00:00:00 [facility] SARS-COV-2 COVID-19 2020-09-21 Completed [facility] PFIZER VACCINE 00:00:00 [facility] SARS-COV-2 COVID-19 2020-09-21 Completed [facility] PFIZER VACCINE 00:00:00 [facility] SARS-COV-2 COVID-19 2020-09-21 Completed [facility] PFIZER VACCINE 00:00:00 [facility] SARS-COV-2 COVID-19 2020-09-21 Completed [facility] PFIZER VACCINE 00:00:00 [facility] SARS-COV-2 COVID-19 2020-09-21 Completed [facility] PFIZER VACCINE 00:00:00 [facility] SARS-COV-2 COVID-19 2020-09-21 Completed [facility] PFIZER VACCINE 00:00:00 [facility] SARS-COV-2 COVID-19 2020-09-21 Completed [facility] PFIZER VACCINE 00:00:00 [facility] SARS-COV-2 COVID-19 2020-09-21 Completed [facility] PFIZER VACCINE 00:00:00 [facility] SARS-COV-2 COVID-19 2020-09-21 Completed [facility] PFIZER VACCINE 00:00:00 [facility] SARS-COV-2 COVID-19 2020-09-21 Completed [facility] PFIZER VACCINE 00:00:00 [facility] SARS-COV-2 COVID-19 2020-09-21 Completed [facility] PFIZER VACCINE 00:00:00 [facility] SARS-COV-2 COVID-19 2020-09-21 Completed [facility] PFIZER VACCINE 00:00:00 [facility] SARS-COV-2 COVID-19 2020-09-21 Completed [facility] PFIZER VACCINE 00:00:00 [facility] SARS-COV-2 COVID-19 2020-09-21 Completed [facility] PFIZER VACCINE 00:00:00 [facility] SARS-COV-2 COVID-19 2020-09-21 Completed [facility] PFIZER VACCINE 00:00:00 [facility] SARS-COV-2 COVID-19 2020-08-31 Completed [facility] PFIZER VACCINE 00:00:00 [facility] SARS-COV-2 COVID-19 2020-08-31 Completed [facility] PFIZER VACCINE 00:00:00 [facility] SARS-COV-2 COVID-19 2020-08-31 Completed [facility] PFIZER VACCINE 00:00:00 [facility] SARS-COV-2 COVID-19 2020-08-31 Completed [facility] PFIZER VACCINE 00:00:00 [facility] SARS-COV-2 COVID-19 2020-08-31 Completed [facility] PFIZER VACCINE 00:00:00 [facility] SARS-COV-2 COVID-19 2020-08-31 Completed [facility] PFIZER VACCINE 00:00:00 [facility] SARS-COV-2 COVID-19 2020-08-31 Completed [facility] PFIZER VACCINE 00:00:00 [facility] SARS-COV-2 COVID-19 2020-08-31 Completed [facility] PFIZER VACCINE 00:00:00 [facility] SARS-COV-2 COVID-19 2020-08-31 Completed [facility] PFIZER VACCINE 00:00:00 [facility] SARS-COV-2 COVID-19 2020-08-31 Completed [facility] PFIZER VACCINE 00:00:00 [facility] SARS-COV-2 COVID-19 2020-08-31 Completed [facility] PFIZER VACCINE 00:00:00 [facility] SARS-COV-2 COVID-19 2020-08-31 Completed [facility] PFIZER VACCINE 00:00:00 [facility] SARS-COV-2 COVID-19 2020-08-31 Completed [facility] PFIZER VACCINE 00:00:00 [facility] SARS-COV-2 COVID-19 2020-08-31 Completed [facility] PFIZER VACCINE 00:00:00 [facility] SARS-COV-2 COVID-19 2020-08-31 Completed [facility] PFIZER VACCINE 00:00:00 [facility] SARS-COV-2 COVID-19 2020-08-31 Completed [facility] PFIZER VACCINE 00:00:00 [facility] SARS-COV-2 COVID-19 2020-08-31 Completed [facility] PFIZER VACCINE 00:00:00 [facility] SARS-COV-2 COVID-19 2020-08-31 Completed [facility] PFIZER VACCINE 00:00:00 [facility] SARS-COV-2 COVID-19 2020-08-31 Completed [facility] PFIZER VACCINE 00:00:00 [facility] SARS-COV-2 COVID-19 2020-08-31 Completed [facility] PFIZER VACCINE 00:00:00 [facility] SARS-COV-2 COVID-19 2020-08-31 Completed [facility] PFIZER VACCINE 00:00:00 [facility] SARS-COV-2 COVID-19 2020-08-31 Completed [facility] PFIZER VACCINE 00:00:00 [facility] SARS-COV-2 COVID-19 2020-08-31 Completed [facility] PFIZER VACCINE 00:00:00 [facility] SARS-COV-2 COVID-19 2020-08-31 Completed [facility] PFIZER VACCINE 00:00:00 [facility] SARS-COV-2 COVID-19 2020-08-31 Completed [facility] PFIZER VACCINE 00:00:00 [facility] SARS-COV-2 COVID-19 2020-08-31 Completed [facility] PFIZER VACCINE 00:00:00 [facility] SARS-COV-2 COVID-19 2020-08-31 Completed [facility] PFIZER VACCINE 00:00:00 [facility] SARS-COV-2 COVID-19 2020-08-31 Completed [facility] PFIZER VACCINE 00:00:00 [facility] Influenza High Dose 2020-04-26 Completed [facility] 00:00:00 [facility] Influenza High Dose 2020-04-26 Completed [facility] 00:00:00 [facility] Influenza High Dose 2020-04-26 Completed [facility] 00:00:00 [facility] Influenza High Dose 2020-04-26 Completed [facility] 00:00:00 [facility] Influenza High Dose 2020-04-26 Completed [facility] 00:00:00 [facility] Influenza High Dose 2020-04-26 Completed [facility] 00:00:00 [facility] Influenza High Dose 2020-04-26 Completed [facility] 00:00:00 [facility] Influenza High Dose 2020-04-26 Completed [facility] 00:00:00 [facility] Influenza High Dose 2020-04-26 Completed [facility] 00:00:00 [facility] Influenza High Dose 2020-04-26 Completed [facility] 00:00:00 [facility] Influenza High Dose 2020-04-26 Completed [facility] 00:00:00 [facility] Influenza High Dose 2020-04-26 Completed [facility] 00:00:00 [facility] Influenza High Dose 2020-04-26 Completed [facility] 00:00:00 [facility] Influenza High Dose 2020-04-26 Completed [facility] 00:00:00 [facility] Influenza High Dose 2020-04-26 Completed [facility] 00:00:00 [facility] Influenza High Dose 2020-04-26 Completed [facility] 00:00:00 [facility] Influenza High Dose 2020-04-26 Completed [facility] 00:00:00 [facility] Influenza High Dose 2020-04-26 Completed [facility] 00:00:00 [facility] Influenza High Dose 2020-04-26 Completed [facility] 00:00:00 [facility] Influenza High Dose 2020-04-26 Completed [facility] 00:00:00 [facility] Influenza High Dose 2020-04-26 Completed [facility] 00:00:00 [facility] Influenza High Dose 2020-04-26 Completed [facility] 00:00:00 [facility] Influenza High Dose 2020-04-26 Completed [facility] 00:00:00 [facility] Influenza High Dose 2020-04-26 Completed [facility] 00:00:00 [facility] Influenza High Dose 2020-04-26 Completed [facility] 00:00:00 [facility] Influenza High Dose 2020-04-26 Completed [facility] 00:00:00 [facility] Influenza High Dose 2020-04-26 Completed [facility] 00:00:00 [facility] Influenza High Dose 2020-04-26 Completed [facility] 00:00:00 [facility] Zoster Vaccine 2019-10-06 Completed [facility] Recombinant 00:00:00 [facility] Zoster Vaccine 2019-10-06 Completed [facility] Recombinant 00:00:00 [facility] Zoster Vaccine 2019-10-06 Completed [facility] Recombinant 00:00:00 [facility] Zoster Vaccine 2019-10-06 Completed [facility] Recombinant 00:00:00 [facility] Zoster Vaccine 2019-10-06 Completed [facility] Recombinant 00:00:00 [facility] Zoster Vaccine 2019-10-06 Completed [facility] Recombinant 00:00:00 [facility] Zoster Vaccine 2019-10-06 Completed [facility] Recombinant 00:00:00 [facility] Zoster Vaccine 2019-10-06 Completed [facility] Recombinant 00:00:00 [facility] Zoster Vaccine 2019-10-06 Completed [facility] Recombinant 00:00:00 [facility] Zoster Vaccine 2019-10-06 Completed [facility] Recombinant 00:00:00 [facility] Zoster Vaccine 2019-10-06 Completed [facility] Recombinant 00:00:00 [facility] Zoster Vaccine 2019-10-06 Completed [facility] Recombinant 00:00:00 [facility] Zoster Vaccine 2019-10-06 Completed [facility] Recombinant 00:00:00 [facility] Zoster Vaccine 2019-10-06 Completed [facility] Recombinant 00:00:00 [facility] Zoster Vaccine 2019-10-06 Completed [facility] Recombinant 00:00:00 [facility] Zoster Vaccine 2019-10-06 Completed [facility] Recombinant 00:00:00 [facility] Zoster Vaccine 2019-10-06 Completed [facility] Recombinant 00:00:00 [facility] Zoster Vaccine 2019-10-06 Completed [facility] Recombinant 00:00:00 [facility] Zoster Vaccine 2019-10-06 Completed [facility] Recombinant 00:00:00 [facility] Zoster Vaccine 2019-10-06 Completed [facility] Recombinant 00:00:00 [facility] Zoster Vaccine 2019-10-06 Completed [facility] Recombinant 00:00:00 [facility] Zoster Vaccine 2019-10-06 Completed [facility] Recombinant 00:00:00 [facility] Zoster Vaccine 2019-10-06 Completed [facility] Recombinant 00:00:00 [facility] Zoster Vaccine 2019-10-06 Completed [facility] Recombinant 00:00:00 [facility] Zoster Vaccine 2019-10-06 Completed [facility] Recombinant 00:00:00 [facility] Zoster Vaccine 2019-10-06 Completed [facility] Recombinant 00:00:00 [facility] Zoster Vaccine 2019-10-06 Completed [facility] Recombinant 00:00:00 [facility] Zoster Vaccine 2019-10-06 Completed [facility] Recombinant 00:00:00 [facility] TDAP (ADACEL) 2019-07-09 Completed [facility] VACCINE 00:00:00 [facility] Zoster Vaccine 2019-07-09 Completed [facility] Recombinant 00:00:00 [facility] TDAP 2019-07-09 Completed [facility] 00:00:00 [facility] TDAP (ADACEL) 2019-07-09 Completed [facility] VACCINE 00:00:00 [facility] Zoster Vaccine 2019-07-09 Completed [facility] Recombinant 00:00:00 [facility] TDAP 2019-07-09 Completed [facility] 00:00:00 [facility] TDAP (ADACEL) 2019-07-09 Completed [facility] VACCINE 00:00:00 [facility] Zoster Vaccine 2019-07-09 Completed [facility] Recombinant 00:00:00 [facility] TDAP 2019-07-09 Completed [facility] 00:00:00 [facility] TDAP (ADACEL) 2019-07-09 Completed [facility] VACCINE 00:00:00 [facility] Zoster Vaccine 2019-07-09 Completed [facility] Recombinant 00:00:00 [facility] TDAP 2019-07-09 Completed [facility] 00:00:00 [facility] TDAP (ADACEL) 2019-07-09 Completed [facility] VACCINE 00:00:00 [facility] Zoster Vaccine 2019-07-09 Completed [facility] Recombinant 00:00:00 [facility] TDAP 2019-07-09 Completed [facility] 00:00:00 [facility] TDAP (ADACEL) 2019-07-09 Completed [facility] VACCINE 00:00:00 [facility] Zoster Vaccine 2019-07-09 Completed [facility] Recombinant 00:00:00 [facility] TDAP 2019-07-09 Completed [facility] 00:00:00 [facility] TDAP (ADACEL) 2019-07-09 Completed [facility] VACCINE 00:00:00 [facility] Zoster Vaccine 2019-07-09 Completed [facility] Recombinant 00:00:00 [facility] TDAP 2019-07-09 Completed [facility] 00:00:00 [facility] TDAP (ADACEL) 2019-07-09 Completed [facility] VACCINE 00:00:00 [facility] Zoster Vaccine 2019-07-09 Completed [facility] Recombinant 00:00:00 [facility] TDAP 2019-07-09 Completed [facility] 00:00:00 [facility] TDAP (ADACEL) 2019-07-09 Completed [facility] VACCINE 00:00:00 [facility] Zoster Vaccine 2019-07-09 Completed [facility] Recombinant 00:00:00 [facility] TDAP 2019-07-09 Completed [facility] 00:00:00 [facility] TDAP (ADACEL) 2019-07-09 Completed [facility] VACCINE 00:00:00 [facility] Zoster Vaccine 2019-07-09 Completed [facility] Recombinant 00:00:00 [facility] TDAP 2019-07-09 Completed [facility] 00:00:00 [facility] TDAP (ADACEL) 2019-07-09 Completed [facility] VACCINE 00:00:00 [facility] Zoster Vaccine 2019-07-09 Completed [facility] Recombinant 00:00:00 [facility] TDAP 2019-07-09 Completed [facility] 00:00:00 [facility] TDAP (ADACEL) 2019-07-09 Completed [facility] VACCINE 00:00:00 [facility] Zoster Vaccine 2019-07-09 Completed [facility] Recombinant 00:00:00 [facility] TDAP 2019-07-09 Completed [facility] 00:00:00 [facility] TDAP (ADACEL) 2019-07-09 Completed [facility] VACCINE 00:00:00 [facility] Zoster Vaccine 2019-07-09 Completed [facility] Recombinant 00:00:00 [facility] TDAP 2019-07-09 Completed [facility] 00:00:00 [facility] TDAP (ADACEL) 2019-07-09 Completed [facility] VACCINE 00:00:00 [facility] Zoster Vaccine 2019-07-09 Completed [facility] of Recombinant 00:00:00 [facility] TDAP 2019-07-09 Completed University of 00:00:00 [facility] TDAP (ADACEL) 2019-07-09 Completed University of VACCINE 00:00:00 [facility] Zoster Vaccine 2019-07-09 Completed [facility] of Recombinant 00:00:00 [facility] TDAP 2019-07-09 Completed University of 00:00:00 [facility] TDAP (ADACEL) 2019-07-09 Completed [facility] of VACCINE 00:00:00 [facility] Zoster Vaccine 2019-07-09 Completed [facility] of Recombinant 00:00:00 [facility] TDAP 2019-07-09 Completed University of 00:00:00 [facility] TDAP (ADACEL) 2019-07-09 Completed [facility] of VACCINE 00:00:00 [facility] Zoster Vaccine 2019-07-09 Completed [facility] of Recombinant 00:00:00 [facility] TDAP 2019-07-09 Completed University of 00:00:00 [facility] TDAP (ADACEL) 2019-07-09 Completed [facility] of VACCINE 00:00:00 [facility] Zoster Vaccine 2019-07-09 Completed [facility] of Recombinant 00:00:00 [facility] TDAP 2019-07-09 Completed University of 00:00:00 [facility] TDAP (ADACEL) 2019-07-09 Completed [facility] of VACCINE 00:00:00 [facility] Zoster Vaccine 2019-07-09 Completed [facility] of Recombinant 00:00:00 [facility] TDAP 2019-07-09 Completed University of 00:00:00 [facility] TDAP (ADACEL) 2019-07-09 Completed [facility] of VACCINE 00:00:00 [facility] Zoster Vaccine 2019-07-09 Completed [facility] of Recombinant 00:00:00 [facility] TDAP 2019-07-09 Completed University of 00:00:00 [facility] TDAP (ADACEL) 2019-07-09 Completed [facility] of VACCINE 00:00:00 [facility] Zoster Vaccine 2019-07-09 Completed [facility] of Recombinant 00:00:00 [facility] TDAP 2019-07-09 Completed University of 00:00:00 [facility] TDAP (ADACEL) 2019-07-09 Completed [facility] of VACCINE 00:00:00 [facility] Zoster Vaccine 2019-07-09 Completed [facility] of Recombinant 00:00:00 [facility] TDAP 2019-07-09 Completed University of 00:00:00 [facility] TDAP (ADACEL) 2019-07-09 Completed [facility] of VACCINE 00:00:00 [facility] Zoster Vaccine 2019-07-09 Completed [facility] of Recombinant 00:00:00 [facility] TDAP 2019-07-09 Completed [facility] of 00:00:00 [facility] TDAP (ADACEL) 2019-07-09 Completed [facility] of VACCINE 00:00:00 [facility] Zoster Vaccine 2019-07-09 Completed [facility] of Recombinant 00:00:00 [facility] TDAP 2019-07-09 Completed [facility] of 00:00:00 [facility] TDAP (ADACEL) 2019-07-09 Completed [facility] of VACCINE 00:00:00 [facility] Zoster Vaccine 2019-07-09 Completed [facility] of Recombinant 00:00:00 [facility] TDAP 2019-07-09 Completed [facility] of 00:00:00 [facility] TDAP (ADACEL) 2019-07-09 Completed [facility] of VACCINE 00:00:00 [facility] Zoster Vaccine 2019-07-09 Completed [facility] of Recombinant 00:00:00 [facility] TDAP 2019-07-09 Completed University of 00:00:00 [facility] TDAP (ADACEL) 2019-07-09 Completed [facility] of VACCINE 00:00:00 [facility] Zoster Vaccine 2019-07-09 Completed [facility] of Recombinant 00:00:00 [facility] TDAP 2019-07-09 Completed University of 00:00:00 [facility] TDAP (ADACEL) 2019-07-09 Completed [facility] of VACCINE 00:00:00 [facility] Zoster Vaccine 2019-07-09 Completed [facility] of Recombinant 00:00:00 [facility] TDAP 2019-07-09 Completed University of 00:00:00 [facility] Influenza High Dose 2019-04-12 Completed Unive rsity of 00:00:00 [facility] Influenza High Dose 2019-04-12 Completed Unive rsity of 00:00:00 [facility] Influenza High Dose 2019-04-12 Completed Unive rsity of 00:00:00 [facility] Influenza High Dose 2019-04-12 Completed Unive rsity of 00:00:00 [facility] Influenza High Dose 2019-04-12 Completed Unive rsity of 00:00:00 [facility] Influenza High Dose 2019-04-12 Completed Unive rsity of 00:00:00 [facility] Influenza High Dose 2019-04-12 Completed Unive rsity of 00:00:00 [facility] Influenza High Dose 2019-04-12 Completed Unive rsity of 00:00:00 [facility] Influenza High Dose 2019-04-12 Completed Unive rsity of 00:00:00 [facility] Influenza High Dose 2019-04-12 Completed Unive rsity of 00:00:00 [facility] Influenza High Dose 2019-04-12 Completed Unive rsity of 00:00:00 [facility] Influenza High Dose 2019-04-12 Completed Unive rsity of 00:00:00 [facility] Influenza High Dose 2019-04-12 Completed Unive rsity of 00:00:00 [facility] Influenza High Dose 2019-04-12 Completed Unive rsity of 00:00:00 [facility] Influenza High Dose 2019-04-12 Completed Unive rsity of 00:00:00 [facility] Influenza High Dose 2019-04-12 Completed Unive rsity of 00:00:00 [facility] Influenza High Dose 2019-04-12 Completed Unive rsity of 00:00:00 [facility] Influenza High Dose 2019-04-12 Completed Unive rsity of 00:00:00 [facility] Influenza High Dose 2019-04-12 Completed Unive rsity of 00:00:00 [facility] Influenza High Dose 2019-04-12 Completed Unive rsity of 00:00:00 [facility] Influenza High Dose 2019-04-12 Completed Unive rsity of 00:00:00 [facility] Influenza High Dose 2019-04-12 Completed Unive rsity of 00:00:00 [facility] Influenza High Dose 2019-04-12 Completed Unive rsity of 00:00:00 [facility] Influenza High Dose 2019-04-12 Completed Unive rsity of 00:00:00 [facility] Influenza High Dose 2019-04-12 Completed Unive rsity of 00:00:00 [facility] Influenza High Dose 2019-04-12 Completed Unive rsity of 00:00:00 [facility] Influenza High Dose 2019-04-12 Completed Unive rsity of 00:00:00 [facility] Influenza High Dose 2019-04-12 Completed Unive rsity of 00:00:00 [facility] Influenza High Dose 2018-05-07 Completed Unive rsity of 00:00:00 [facility] Pneumococcal 2018-05-07 Completed University o f Polysaccharide, 00:00:00 [place] [facility] PPSV23 (PNEUMOVAX) Branch Influenza High Dose 2018-05-07 Completed Unive rsity of 00:00:00 [facility] Pneumococcal 2018-05-07 Completed University o f Polysaccharide, 00:00:00 [place] [facility] PPSV23 (PNEUMOVAX) Branch Influenza High Dose 2018-05-07 Completed Unive rsity of 00:00:00 [facility] Pneumococcal 2018-05-07 Completed University o f Polysaccharide, 00:00:00 [place] [facility] PPSV23 (PNEUMOVAX) Branch Influenza High Dose 2018-05-07 Completed Unive rsity of 00:00:00 [facility] Pneumococcal 2018-05-07 Completed University o f Polysaccharide, 00:00:00 [place] [facility] PPSV23 (PNEUMOVAX) Branch Influenza High Dose 2018-05-07 Completed Unive rsity of 00:00:00 [facility] Pneumococcal 2018-05-07 Completed University o f Polysaccharide, 00:00:00 [place] [facility] PPSV23 (PNEUMOVAX) Branch Influenza High Dose 2018-05-07 Completed Unive rsity of 00:00:00 [facility] Pneumococcal 2018-05-07 Completed University o f Polysaccharide, 00:00:00 [place] [facility] PPSV23 (PNEUMOVAX) Branch Influenza High Dose 2018-05-07 Completed Unive rsity of 00:00:00 [facility] Pneumococcal 2018-05-07 Completed University o f Polysaccharide, 00:00:00 [place] [facility] PPSV23 (PNEUMOVAX) Branch Influenza High Dose 2018-05-07 Completed Unive rsity of 00:00:00 [facility] Pneumococcal 2018-05-07 Completed University o f Polysaccharide, 00:00:00 [place] [facility] PPSV23 (PNEUMOVAX) Branch Influenza High Dose 2018-05-07 Completed Unive rsity of 00:00:00 [facility] Pneumococcal 2018-05-07 Completed University o f Polysaccharide, 00:00:00 [place] [facility] PPSV23 (PNEUMOVAX) Branch Influenza High Dose 2018-05-07 Completed Unive rsity of 00:00:00 [facility] Pneumococcal 2018-05-07 Completed University o f Polysaccharide, 00:00:00 [place] [facility] PPSV23 (PNEUMOVAX) Branch Influenza High Dose 2018-05-07 Completed Unive rsity of 00:00:00 [facility] Pneumococcal 2018-05-07 Completed University o f Polysaccharide, 00:00:00 [place] [facility] PPSV23 (PNEUMOVAX) Branch Influenza High Dose 2018-05-07 Completed Unive rsity of 00:00:00 [facility] Pneumococcal 2018-05-07 Completed University o f Polysaccharide, 00:00:00 [place] [facility] PPSV23 (PNEUMOVAX) Branch Influenza High Dose 2018-05-07 Completed Unive rsity of 00:00:00 [facility] Pneumococcal 2018-05-07 Completed University o f Polysaccharide, 00:00:00 [place] [facility] PPSV23 (PNEUMOVAX) Branch Influenza High Dose 2018-05-07 Completed Unive rsity of 00:00:00 [facility] Pneumococcal 2018-05-07 Completed University o f Polysaccharide, 00:00:00 [place] [facility] PPSV23 (PNEUMOVAX) Branch Influenza High Dose 2018-05-07 Completed Unive rsity of 00:00:00 [facility] Pneumococcal 2018-05-07 Completed University o f Polysaccharide, 00:00:00 [place] [facility] PPSV23 (PNEUMOVAX) Branch Influenza High Dose 2018-05-07 Completed Unive rsity of 00:00:00 [facility] Pneumococcal 2018-05-07 Completed University o f Polysaccharide, 00:00:00 [place] [facility] PPSV23 (PNEUMOVAX) Branch Influenza High Dose 2018-05-07 Completed Unive rsity of 00:00:00 [facility] Pneumococcal 2018-05-07 Completed University o f Polysaccharide, 00:00:00 [place] [facility] PPSV23 (PNEUMOVAX) Branch Influenza High Dose 2018-05-07 Completed Unive rsity of 00:00:00 [facility] Pneumococcal 2018-05-07 Completed University o f Polysaccharide, 00:00:00 [place] [facility] PPSV23 (PNEUMOVAX) Branch Influenza High Dose 2018-05-07 Completed Unive rsity of 00:00:00 [facility] Pneumococcal 2018-05-07 Completed University o f Polysaccharide, 00:00:00 [place] [facility] PPSV23 (PNEUMOVAX) Branch Influenza High Dose 2018-05-07 Completed Unive rsity of 00:00:00 [facility] Pneumococcal 2018-05-07 Completed University o f Polysaccharide, 00:00:00 [place] [facility] PPSV23 (PNEUMOVAX) Branch Influenza High Dose 2018-05-07 Completed Unive rsity of 00:00:00 [facility] Pneumococcal 2018-05-07 Completed University o f Polysaccharide, 00:00:00 [place] [facility] PPSV23 (PNEUMOVAX) Branch Influenza High Dose 2018-05-07 Completed Unive rsity of 00:00:00 [facility] Pneumococcal 2018-05-07 Completed University o f Polysaccharide, 00:00:00 [place] [facility] PPSV23 (PNEUMOVAX) Branch Influenza High Dose 2018-05-07 Completed Unive rsity of 00:00:00 [facility] Pneumococcal 2018-05-07 Completed University o f Polysaccharide, 00:00:00 [place] [facility] PPSV23 (PNEUMOVAX) Branch Influenza High Dose 2018-05-07 Completed Unive rsity of 00:00:00 [facility] Pneumococcal 2018-05-07 Completed University o f Polysaccharide, 00:00:00 [place] [facility] PPSV23 (PNEUMOVAX) Branch Influenza High Dose 2018-05-07 Completed Unive rsity of 00:00:00 [facility] Pneumococcal 2018-05-07 Completed University o f Polysaccharide, 00:00:00 [place] [facility] PPSV23 (PNEUMOVAX) Branch Influenza High Dose 2018-05-07 Completed Unive rsity of 00:00:00 [facility] Pneumococcal 2018-05-07 Completed University o f Polysaccharide, 00:00:00 [place] [facility] PPSV23 (PNEUMOVAX) Branch Influenza High Dose 2018-05-07 Completed Unive rsity of 00:00:00 [facility] Pneumococcal 2018-05-07 Completed University o f Polysaccharide, 00:00:00 [place] [facility] PPSV23 (PNEUMOVAX) Branch Influenza High Dose 2018-05-07 Completed Unive rsity of 00:00:00 [facility] Pneumococcal 2018-05-07 Completed University o f Polysaccharide, 00:00:00 [place] [facility] PPSV23 (PNEUMOVAX) Branch Influenza High Dose 2017-05-07 Completed Unive rsity of 00:00:00 [facility] Influenza High Dose 2017-05-07 Completed Unive rsity of 00:00:00 [facility] Influenza High Dose 2017-05-07 Completed Unive rsity of 00:00:00 [facility] Influenza High Dose 2017-05-07 Completed Unive rsity of 00:00:00 [facility] Influenza High Dose 2017-05-07 Completed Unive rsity of 00:00:00 [facility] Influenza High Dose 2017-05-07 Completed Unive rsity of 00:00:00 [facility] Influenza High Dose 2017-05-07 Completed Unive rsity of 00:00:00 [facility] Influenza High Dose 2017-05-07 Completed Unive rsity of 00:00:00 [facility] Influenza High Dose 2017-05-07 Completed Unive rsity of 00:00:00 [facility] Influenza High Dose 2017-05-07 Completed Unive rsity of 00:00:00 [facility] Influenza High Dose 2017-05-07 Completed Unive rsity of 00:00:00 [facility] Influenza High Dose 2017-05-07 Completed Unive rsity of 00:00:00 [facility] Influenza High Dose 2017-05-07 Completed Unive rsity of 00:00:00 [facility] Influenza High Dose 2017-05-07 Completed Unive rsity of 00:00:00 [facility] Influenza High Dose 2017-05-07 Completed Unive rsity of 00:00:00 [facility] Influenza High Dose 2017-05-07 Completed Unive rsity of 00:00:00 [facility] Influenza High Dose 2017-05-07 Completed Unive rsity of 00:00:00 [facility] Influenza High Dose 2017-05-07 Completed Unive rsity of 00:00:00 [facility] Influenza High Dose 2017-05-07 Completed Unive rsity of 00:00:00 [facility] Influenza High Dose 2017-05-07 Completed Unive rsity of 00:00:00 [facility] Influenza High Dose 2017-05-07 Completed Unive rsity of 00:00:00 [facility] Influenza High Dose 2017-05-07 Completed Unive rsity of 00:00:00 [facility] Influenza High Dose 2017-05-07 Completed Unive rsity of 00:00:00 [facility] Influenza High Dose 2017-05-07 Completed Unive rsity of 00:00:00 [facility] Influenza High Dose 2017-05-07 Completed Unive rsity of 00:00:00 [facility] Influenza High Dose 2017-05-07 Completed Unive rsity of 00:00:00 [facility] Influenza High Dose 2017-05-07 Completed Unive rsity of 00:00:00 [facility] Influenza High Dose 2017-05-07 Completed Unive rsity of 00:00:00 [facility] Pneumococcal 13 2016-05-12 Completed Universit y of Conjugate, PCV13 00:00:00 [place] [facility] (Prevnar 13) Branch Pneumococcal 13 2016-05-12 Completed Universit y of Conjugate, PCV13 00:00:00 [place] [facility] (Prevnar 13) Branch Pneumococcal 13 2016-05-12 Completed Universit y of Conjugate, PCV13 00:00:00 [place] [facility] (Prevnar 13) Branch Pneumococcal 13 2016-05-12 Completed Universit y of Conjugate, PCV13 00:00:00 [place] [facility] (Prevnar 13) Branch Pneumococcal 13 2016-05-12 Completed Universit y of Conjugate, PCV13 00:00:00 [place] [facility] (Prevnar 13) Branch Pneumococcal 13 2016-05-12 Completed Universit y of Conjugate, PCV13 00:00:00 [place] [facility] (Prevnar 13) Branch Pneumococcal 13 2016-05-12 Completed Universit y of Conjugate, PCV13 00:00:00 [place] [facility] (Prevnar 13) Branch Pneumococcal 13 2016-05-12 Completed Universit y of Conjugate, PCV13 00:00:00 [place] [facility] (Prevnar 13) Branch Pneumococcal 13 2016-05-12 Completed Universit y of Conjugate, PCV13 00:00:00 [place] [facility] (Prevnar 13) Branch Pneumococcal 13 2016-05-12 Completed Universit y of Conjugate, PCV13 00:00:00 [place] [facility] (Prevnar 13) Branch Pneumococcal 13 2016-05-12 Completed Universit y of Conjugate, PCV13 00:00:00 [place] [facility] (Prevnar 13) Branch Pneumococcal 13 2016-05-12 Completed Universit y of Conjugate, PCV13 00:00:00 [place] [facility] (Prevnar 13) Branch Pneumococcal 13 2016-05-12 Completed Universit y of Conjugate, PCV13 00:00:00 [place] [facility] (Prevnar 13) Branch Pneumococcal 13 2016-05-12 Completed Universit y of Conjugate, PCV13 00:00:00 [place] [facility] (Prevnar 13) Branch Pneumococcal 13 2016-05-12 Completed Universit y of Conjugate, PCV13 00:00:00 [place] [facility] (Prevnar 13) Branch Pneumococcal 13 2016-05-12 Completed Universit y of Conjugate, PCV13 00:00:00 [place] [facility] (Prevnar 13) Branch Pneumococcal 13 2016-05-12 Completed Universit y of Conjugate, PCV13 00:00:00 [place] [facility] (Prevnar 13) Branch Pneumococcal 13 2016-05-12 Completed Universit y of Conjugate, PCV13 00:00:00 [place] [facility] (Prevnar 13) Branch Pneumococcal 13 2016-05-12 Completed Universit y of Conjugate, PCV13 00:00:00 [place] [facility] (Prevnar 13) Branch Pneumococcal 13 2016-05-12 Completed Universit y of Conjugate, PCV13 00:00:00 [place] [facility] (Prevnar 13) Branch Pneumococcal 13 2016-05-12 Completed Universit y of Conjugate, PCV13 00:00:00 [place] [facility] (Prevnar 13) Branch Pneumococcal 13 2016-05-12 Completed Universit y of Conjugate, PCV13 00:00:00 [place] [facility] (Prevnar 13) Branch Pneumococcal 13 2016-05-12 Completed Universit y of Conjugate, PCV13 00:00:00 [place] [facility] (Prevnar 13) Branch Pneumococcal 13 2016-05-12 Completed Universit y of Conjugate, PCV13 00:00:00 [place] [facility] (Prevnar 13) Branch Pneumococcal 13 2016-05-12 Completed Universit y of Conjugate, PCV13 00:00:00 [place] [facility] (Prevnar 13) Branch Pneumococcal 13 2016-05-12 Completed Universit y of Conjugate, PCV13 00:00:00 [place] [facility] (Prevnar 13) Branch Pneumococcal 13 2016-05-12 Completed Universit y of Conjugate, PCV13 00:00:00 [place] [facility] (Prevnar 13) Branch Pneumococcal 13 2016-05-12 Completed Universit y of Conjugate, PCV13 00:00:00 [place] [facility] (Prevnar 13) Branch Td 1994-09-06 Completed University of 00:00:00 [facility] Td 1994-09-06 Completed University of 00:00:00 [facility] Td 1994-09-06 Completed University of 00:00:00 [facility] Td 1994-09-06 Completed [facility] of 00:00:00 [facility] Td 1994-09-06 Completed [facility] of 00:00:00 [facility] Td 1994-09-06 Completed [facility] of 00:00:00 [facility] Td 1994-09-06 Completed [facility] of 00:00:00 [facility] Td 1994-09-06 Completed [facility] of 00:00:00 [facility] Td 1994-09-06 Completed [facility] of 00:00:00 [facility] Td 1994-09-06 Completed [facility] of 00:00:00 [facility] Td 1994-09-06 Completed [facility] of 00:00:00 [facility] Td 1994-09-06 Completed University of 00:00:00 [facility] TD, NOS 1994-09-06 Completed University of 00:00:00 [facility] TD, NOS 1994-09-06 Completed [facility] of 00:00:00 [facility] TD, NOS 1994-09-06 Completed [facility] of 00:00:00 [facility] TD, NOS 1994-09-06 Completed [facility] of 00:00:00 [facility] TD, NOS 1994-09-06 Completed University of 00:00:00 [facility] TD, NOS 1994-09-06 Completed [facility] of 00:00:00 [facility] TD, NOS 1994-09-06 Completed [facility] of 00:00:00 [facility] TD, NOS 1994-09-06 Completed [facility] of 00:00:00 [facility] TD, NOS 1994-09-06 Completed University of 00:00:00 [facility] TD, NOS 1994-09-06 Completed [facility] of 00:00:00 [facility] TD, NOS 1994-09-06 Completed [facility] of 00:00:00 [facility] TD, NOS 1994-09-06 Completed University of 00:00:00 [facility] TD, NOS 1994-09-06 Completed University of 00:00:00 [facility] TD, NOS 1994-09-06 Completed [facility] of 00:00:00 [facility] TD, NOS 1994-09-06 Completed [facility] of 00:00:00 [facility] TD, NOS 1994-09-06 Completed University of 00:00:00 [facility] Vital Signs Vital Name Observation Time Observation Value Comments Source Systolic blood 2022-10-06 16:14:00 132 mm[Hg] Univer sity of pressure [facility] Diastolic blood 2022-10-06 16:14:00 61 mm[Hg] Unive rsity of pressure [facility] Heart rate 2022-10-06 16:14:00 56 /min [facility] [place] [facility] Body height 2022-10-06 16:14:00 167.6 cm [facility] Body weight 2022-10-06 16:14:00 88.451 kg [facility] [place] [facility] BMI 2022-10-06 16:14:00 31.47 kg/m2 [facility] [place] [facility] Systolic blood 2022-10-02 21:12:00 150 mm[Hg] [facility]iver [facility] of pressure [facility] Diastolic blood 2022-10-02 21:12:00 60 mm[Hg] Unive rsity of pressure [facility] Heart rate 2022-10-02 21:05:00 66 /min [facility] Body temperature 2022-10-02 21:05:00 36.33 Kathryn Univ ersity of [facility] Respiratory rate 2022-10-02 21:05:00 18 /min Univ ersity of [facility] Body height 2022-10-02 21:05:00 167.6 cm [facility] Body weight 2022-10-02 21:05:00 88.451 kg [facility] BMI 2022-10-02 21:05:00 31.47 kg/m2 [facility]i ty of [facility] Oxygen saturation in 2022-10-02 21:05:00 97 /min University Arterial blood by [facility] Pulse oximetry Branch Systolic blood 2022-09-02 16:09:00 134 mm[Hg] Univer sity of pressure [facility] Diastolic blood 2022-09-02 16:09:00 63 mm[Hg] Unive rsity of pressure [facility] Heart rate 2022-09-02 16:08:00 59 /min [facility] [place] [facility] Respiratory rate 2022-09-02 16:08:00 18 /min Univ ersity of [facility] Body weight 2022-09-02 16:08:00 87.091 kg [facility] BMI 2022-09-02 16:08:00 30.99 kg/m2 [facility] [place] [facility] Systolic blood 2022-08-05 17:00:00 134 mm[Hg] Univer sity of pressure [facility] Diastolic blood 2022-08-05 17:00:00 72 mm[Hg] Unive rsity of pressure [facility] Heart rate 2022-08-05 17:00:00 55 /min [facility]i ty of [facility] Body height 2022-08-05 17:00:00 167.6 cm [facility] [place] [facility] Body weight 2022-08-05 17:00:00 88.451 kg [facility] BMI 2022-08-05 17:00:00 31.47 kg/m2 [facility] of [facility] Oxygen saturation in 2022-08-05 17:00:00 97 /min [facility] Arterial blood by [facility] Pulse oximetry Branch Body height 2022-07-15 19:25:00 167.6 cm Universi ty of [facility] Body weight 2022-07-15 19:25:00 89.812 kg [facility] [place] [facility] BMI 2022-07-15 19:25:00 31.96 kg/m2 [facility] HEIGHT 2022-01-28 23:00:00 167.6 cm WEIGHT 2022-01-28 23:00:00 87.091 kg HEIGHT 2022-01-28 23:00:00 167.6 cm WEIGHT 2022-01-28 23:00:00 87.091 kg HEIGHT 2022-01-28 23:00:00 167.6 cm WEIGHT 2022-01-28 23:00:00 87.091 kg Systolic blood 2021-11-26 16:02:00 154 mm[Hg] Univer sity of pressure [facility] Diastolic blood 2021-11-26 16:02:00 62 mm[Hg] Unive rsity of pressure [facility] Heart rate 2021-11-26 16:02:00 50 /min [facility] Body temperature 2021-11-26 16:02:00 36.44 Kathryn [facility] Respiratory rate 2021-11-26 16:02:00 18 /min [facility] Body weight 2021-11-26 16:02:00 87.363 kg [facility] [place] [facility] [place] BMI 2021-11-26 16:02:00 31.09 kg/m2 [facility] Oxygen saturation in 2021-11-26 16:02:00 95 /min [facility] Arterial blood by [facility] Pulse oximetry Branch Systolic blood 2022-01-30 12:00:00 173 mm[Hg] [facility] Diastolic blood 2022-01-30 12:00:00 70 mm[Hg] [facility] Heart rate 2022-01-30 12:00:00 57 /min [facility] Body temperature 2022-01-30 12:00:00 36.06 Kathryn [facility] Respiratory rate 2022-01-30 12:00:00 18 /min [facility] Oxygen saturation in 2022-01-30 12:00:00 96 /min [facility] Arterial blood by Medical nter Pulse oximetry BMI 2022-01-28 23:00:00 30.99 kg/m2 [facility] Body height 2022-01-28 23:00:00 167.6 cm [facility] Body weight 2022-01-28 23:00:00 87.091 kg [facility] Procedures Procedure Date / Time Performing Clinician Source Performed FREE T4 2022-10-02 21:32:00 Yogesh Falconssica [facility] THYROID STIMULATING 2022-10-02 21:32:00 Cyndy Falcon [facility] HORMONE [facility] COMP. METABOLIC PANEL 2022-10-02 21:32:00 Cyndy Falcon [facility] ([id number]) [facility] LIPID PANEL 2022-10-02 21:32:00 Terrie Cyndy [facility] ([id number])(TOTAL Medical Branch CHOLESTEROL, TRIGLYCERIDES, HDL) CBC WITH DIFF 2022-10-02 21:32:00 Terrie [facility] GLYCOSYLATED HEMOGLOBIN 2022-10-02 21:32:00 Cyndy Falcon [facility] (A1C) [facility] URINALYSIS 2022-10-02 21:32:00 Terrie [facility] VITAMIN D, 25-OH 2022-10-02 21:32:[address] [facility] Medical Branch [facility] PATIENT FINANCIAL 2022-10-02 20:46:09 Doctor Unassigned, No [facility] POLICY Name Medical Branch MR LUMBAR SPINE WO 2022-09-25 17:53:00 Cyndy De La Rosa [facility] CONTRAST Medical Branch ASSIGNMENT OF BENEFITS 2022-09-25 15:28:08 Doctor Unassigned, No [facility] Name Medical Branch MR BRAIN WO CONTRAST 2022-08-13 16:22:00 [facility] ASSIGNMENT OF BENEFITS 2022-08-13 14:54:13 Doctor Unassigned, No [facility] Name Medical Branch SARS-COV-2 COVID-19 2022-04-28 15:29:57 Doctor Unassigned, No [facility] CRICKET-SUCROSE VACCINE 12 Name Medical Branch YRS+, BIVALENT 0.3ML, IM, (PFIZER ERVIN TOP BOOSTER) FLU 2022-04-28 15:25:02 Russel Jane [facility] VACC(),65+YR,0 Medical Branch .5 ML,IM,ADJUVANTED,QUAD(F LUAD) BASIC METABOLIC PANEL 2022-01-30 03:21:00 RomeroYash CH I [facility] CBC W/PLT COUNT & AUTO 2022-01-29 03:33:00 Yanely Carter CH I [facility] DIFFERENTIAL [facility] BASIC METABOLIC PANEL 2022-01-29 03:33:00 Yanely Carter [facility] PROTHROMBIN TIME/INR 2022-01-29 03:33:00 Yanely Carter [facility] CBC W/PLT COUNT & AUTO 2022-01-29 03:33:00 Yanely Carter I [facility] DIFFERENTIAL [facility] SARS-COV2/RT-PCR ([facility] 2022-01-29 00:57:00 Yanely Carter I [facility] & REF LABS) [facility] URINALYSIS W/ 2022-01-29 00:54:00 Yanely Carter [facility] Medical MICROSCOPIC [facility] EKG-SCANNED 2022-01-28 00:00:00 Provider, Default [facility] ABDOMEN PELVIS WO 2021-12-02 19:41:[address] Willi [address] [facility] Branch XR KUB 2021-11-26 17:28:08 Willi Swan [facility] POCT URINALYSIS 2021-11-26 16:56:00 [facility] Plan of Care Planned Activity Planned Date Details Comments Source Future Scheduled 2029-07-09 DTAP/TDAP/TD VACCINES [facility] 00:00:00 (2 - Td or Tdap) Medical Jason ter [code = DTAP/TDAP/TD VACCINES (2 - Td or Tdap)] Future Scheduled 2023-04-[address] [facility] 00:00:00 (Season Ended) [code Medical Center = Influenza Vaccine (Season Ended)] Future Scheduled 2022-08-[address] [facility] [facility] 00:00:00 WELLNESS (YEAR 2 or Medical Center FIRST YEAR if no IPPE) [code = MEDICARE ANNUAL WELLNESS (YEAR 2 or FIRST YEAR if no IPPE)] Future Scheduled 2022-08-[address] [facility] 00:00:00 (12+) [code = Medical Center DEPRESSION SCREENING (12+)] Future Scheduled 2022-08-10 FALLS RISK SCREENING [facility] Test 00:00:00 [code = FALLS RISK Medical C enter SCREENING] Future Scheduled 2022-01-10 COVID-19 VACCINE (5 - [facility] 00:00:00 Booster for Pfizer Medical C enter series) [code = COVID-19 VACCINE (5 - Booster for Pfizer series)] Future Scheduled 1988 SHINGLES VACCINES ([address] [facility] Test 00:00:00 of 2) [code = Medical Center SHINGLES VACCINES (1 of 2)] Future Scheduled [address] [facility] Test 00:00:00 Counseling and Medical Cente r Screening (12+) [code = Tobacco Cessation Counseling and Screening (12+)] Encounters Start End Encounter Admission Attending Care Care Encounter Source Date/Time Date/Time Type Type Clinicians Facility Department ID 2023-04-02 2023-04-02 Outpatient R TERRIE [facility] [id number] Univers 10:30:00 10:30:00 CYNDY lozada [facility] 2022-10-06 2022-10-06 Outpatient R RJ [facility] [id number] Univers 10:30:00 10:37:13 CYNDY lozada [facility] 2022-10-06 2022-10-06 [facility] 1.2.840.114 [id number] Univers 10:30:00 10:37:13 Visit Cyndy [facility] 350.1.13.10 it y of [place] 4.2.7.2.686 David as LUBNA?BLEA [phone] Nj dical KNEY 092 [facility] OFFICE [facility] 2022-10-02 2022-10-02 Hub Inventory Specialist 2, Adc Lab [facility] 1.2.840.114 [id number] Univers 15:30:00 15:45:00 Visit Terrie Cyndy STEPHEN 350.1.13.10 ity of [place] [phone] Nj dical NAL 353 [facility] 2022-10-02 2022-10-02 [facility] [id number] Univers 15:00:00 15:20:35 CYNDY felipa [facility] 2022-10-02 2022-10-02 Office [facility] 1.2.840.114 [id number] Univers 15:00:00 15:20:35 Visit Cyndy STEPHEN 350.1.13.10 i ty of [place] [id number] Nj dical NAL 044 [facility] 2022-10-02 2022-10-02 Orders Doctor ELIAN 1.2.840.114 [id number] Univers 00:00:00 00:00:00 Only Unassigned, ZENAIDA 350.1.13.10 ity of [place] [facility] 4.2.7.2.686 David as [phone] [facility] [address] 2022-09-29 2022-09-29 Outpatient R [facility] [id number] Univers 10:30:00 10:30:00 ity [facility] 2022-09-25 2022-09-25 Outpatient [facility] [id number] Univers 09:28:57 23:59:00 CYNDY lozada [facility] 2022-09-25 2022-09-25 Hospital [facility] 1.2.840.114 [id number] Univers 09:28:57 23:59:00 Encounter Cyndy MARROQUINMALOU 350.1.13.10 ity of [place] [facility] [phone] [facility] [address] 2022-09-25 2022-09-25 Orders Doctor ELIAN 1.2.840.114 [id number] Univers 00:00:00 00:00:00 Only Unassigned, ZENAIDA 350.1.13.10 ity of [place] [facility] 4.2.7.2.686 David as [phone] [facility] [address] 2022-09-07 2022-09-07 [facility] 1.2.840.114 [id number] Univers 00:00:00 00:00:00 Willi LOPEZMALOU 350.1.13.10 ity of [place] [facility] [phone] Nj lauren REID 044 Branch BUILDING 2022-09-02 2022-09-02 Outpatient R [facility] [id number] Univers 10:30:00 10:31:58 CYNDY lozada [facility] 2022-09-02 2022-09-02 Office [facility] 1.2.840.114 [id number] Univers 10:30:00 10:31:58 Visit Cyndy [facility] 350.1.13.10 it y [facility] 4.2.7.2.686 David as LUBNA?BLEA [phone] Nj dicgermaine ESPINOEY [address] MEDICAL OFFICE BUILDING 2022-08-13 2022-08-13 Outpatient R TREVIN HERNANDEZ [facility] [id number] Univers 08:56:03 23:59:00 TREVIN HERNANDEZ [facility] 2022-08-13 2022-08-13 [facility] 1.2.471.202 [id number] Univers 08:56:03 23:59:00 Encounter Trevin MITCHELL 350.1.13.10 ity of [place] 4[place] [facility] [id number] [facility] [address] 2022-08-13 2022-08-13 Orders Doctor ELIAN 1.2.840.114 [id number] Univers 00:00:00 00:00:00 Only Unassigned, ZENAIDA 350.1.13.[address] [facility] 4.2.7.2.686 David as [phone] [facility] [address] 2022-08-05 2022-08-05 Outpatient R TREVIN HERNANDEZ [facility] [id number] Univers 11:00:00 11:40:15 [facility] 2022-08-05 2022-08-05 Office [facility] 1.2.840.114 [id number] Univers 11:00:00 11:40:15 Visit Trevin French [facility] 350.1.13.10 ity of [place] 4.2.7.2.686 David as LUBNA?BLEA [phone] Nj lauren HIRSCH [address] MEDICAL OFFICE [facility] 2022-07-15 2022-07-15 Outpatient R NORBERT [facility] [id number] Univers 14:00:00 14:06:55 YONATAN ity of [facility] 2022-07-15 2022-07-15 Office [facility] 1.2.840.114 [id number] Univers 14:00:00 14:06:55 Visit [facility] 350.1.13.10 it y of [place] 4.2.7.2.686 David as LUBNA?BLEA [phone] Nj dical JOYCELYN [address] MEDICAL OFFICE BUILDING 2022-04-28 2022-04-28 Imm/Inj Vaccine, [facility] 1.2.840.114 [id number] Univers 10:00:00 10:10:00 Visit Russel Jane 350.1.13 .10 ity of [facility] 4.2.7.2.[place] [facility] [phone] Nj dical NAL [address] [place] [address] 2022-04-28 2022-04-28 Outpatient R LUCINDA [facility] [id number] Univers 10:00:00 10:00:00 RUSSEL [facility] 2022-04-28 2022-04-28 Nurse Nurse, [facility] [place] [facility] 1.2.840.114 [id number] Univers 09:40:00 10:00:00 Visit Russel Jane 350.1.13 .10 ity [facility] 4.2.7.2.[place] [phone] Nj dical NAL [address] [place] [address] 2022-03-13 2022-03-13 Outpatient R MINI [facility] [id number] Univers 14:30:00 14:30:00 [place]IA [facility] 2022-03-11 2022-03-11 Outpatient R WILLI SWAN [facility] [id number] Univers 10:30:00 10:30:00 WILLI SWAN [facility] 2022-03-01 2022-03-01 Refill [facility] 1.2.840.114 [id number] Univers 00:00:00 00:00:00 Willi MITCHELL 350.1.13.10 [facility] 4[place].7.2.[place] [phone] Nj dical NAL [address] [place] [address] 2022-01-28 2022-01-30 Hospital Yanely Carter [facility] [id number] [facility] St 22:36:00 18:37:00 Encounter RomeroYash packer [facility] 2022-01-28 2022-01-30 Inpatient ER ROMERO, [facility] [id number] SLE 22:36:00 18:37:00 [facility] 2022-01-29 2022-01-[address] [facility] [id number] [id number] 00:[facility] 00:00:00 [facility] 2021-12-04 2021-12-04 Telephone [facility] 1.2.840.114 [id number] Univers 00:00:00 00:00:00 Sharon MITCHELL 350.1.13.10 ity of [facility] 4.2.7.2.[place] [phone] Nj lauren [facility] 231 [facility] 2021-12-02 2021-12-02 Outpatient R WILLI SWAN [facility] [id number] Univers 14:11:14 23:59:00 WILLI SWAN ity [facility] 2021-12-02 2021-12-02 [facility] 1.2.908.674 [id number] Univers 14:11:14 23:59:00 [facility] Willi MITCHELL 350.1.13.10 ity of [place].7.2.[place] CAMPUS [phone] [address] 2021-12-02 2021-12-02 Outpatient R WILLI SWAN [facility] [id number] Univers 00:00:00 00:00:00 WILLI SWAN ity [facility] 2021-11-29 2021-11-29 [place] Cecilia [facility] 1.2.840.114 [id number] Univers 00:00:00 00:00:00 Wlili MITCHELL 350.1.13.10 ity of [place] [phone] [address] 2021-11-29 2021-11-29 Refill [facility] 1.2.840.114 [id number] Univers 00:00:00 00:00:00 Willi MITCHELL 350.1.13.10 ity of [place] 4[place].2.[place] [id number] Nj nevin[address] 2021-11-26 2021-11-26 Outpatient R WILLI SWAN [facility] [id number] Univers 12:13:43 23:59:00 WILLI SWAN ity [facility] 2021-11-26 2021-11-26 Hospital [facility] 1.2.882.490 [id number] Univers 12:13:43 23:59:00 Encounter Willi MITCHELL 350.1.13.10 ity of [place] 4.2.7.2.[place] CAMPUS [phone] [facility] [address] 2021-11-26 2021-11-26 Outpatient R WILLI SWAN [facility] [id number] Univers 11:00:00 11:58:12 WILLI SWAN ity [facility] 2021-11-26 2021-11-26 Office [facility] 1.2.840.114 [id number] Univers 11:00:00 11:58:12 Visit Willi MITCHELL 350.1.13.10 ity [facility] 4.2.7.2.[place] [phone] Nj dic[address] 2021-11-15 2021-11-15 Outpatient [facility] [id number] Univers 13:30:00 13:30:00 SHARON landryy [facility] 2021-11-15 2021-11-15 Imm/Inj Vaccine, [facility] 1.2.840.114 [id number] Univers 13:30:00 13:30:00 Visit Sharon Ohara 350.1. 13.10 ity [facility] 4.2.7.2.[place] [facility] [phone] [address] 2021-10-19 2021-10-19 Letter ELIAN Brice 1.2.670.205 [id number] Univers 00:00:00 00:00:00 (Out) Jack ESTEVEZ 350.1.13.10 it y of [facility] 4.2.7.2.686 David as [phone] [facility] [address] 2021-10-18 2021-10-18 Outpatient R WILLI SWAN [facility] [id number] Univers 16:00:00 16:00:00 WILLI SWAN ity [facility] 2021-10-18 2021-10-18 Outpatient R CARMITA [facility] [id number] Univers 18:00:00 13:57:50 RAFITA lozada o f [facility] 2021-09-16 2021-09-16 Outpatient R MAYDA [facility] [id number] Univers 08:45:00 08:45:00 SHARON lozada [facility] 2021-09-16 2021-09-16 Hub Inventory Specialist 2, Adc Lab [facility] 1.2.840.114 [id number] Univers 08:45:00 08:45:00 Visit Sharon Ohara 350.1. 13.10 ity of [place].2.[place] [phone] Nj dical NAL 353 [facility] 2021-09-12 2021-09-12 Outpatient R [facility] [id number] Univers 08:15:00 08:15:00 ity of [facility] 2021-09-11 2021-09-11 Outpatient R CHRISTIE SWANPIPO [facility] [id number] Univers 10:30:00 11:34:54 CHRISTIE SWANJohnnyHalle [facility] 2021-09-11 2021-09-11 Office Cecilia [facility] 1.2.840.114 [id number] Univers 10:30:00 11:34:54 Visit Willi MITCHELL 350.1.13.10 ity [facility] 4.2.7.2.[place] [phone] Nj dical NAL 044 [facility] 2021-09-11 2021-09-11 Orders Doctor PLUMMER 1.2.840.114 [id number] Univers 00:00:00 00:00:00 Only Unassigned, ZENAIDA 350.1.13.10 ity of [place] [facility] 4.2.7.2.686 David as [phone] [address] 2021-09-09 2021-09-09 Outpatient [facility] [id number] Univers 09:40:00 09:40:00 SHARON ity [facility] 2021-07-08 2021-07-08 Refmargarita [facility] 1.2.840.114 [id number] Univers 00:00:00 00:00:00 Sharon MITCHELL 350.1.13.10 ity of [facility] 4.2.7.2.[place] [id number] [facility] 231 [facility] 2021-05-14 2021-05-14 Outpatient R LUCINDA [facility] [id number] Univers 13:30:00 13:30:00 RUSSEL frantzfelipa [facility] 2021-05-14 2021-05-14 Imm/Inj Nurse, Adc Pob Immunization [facility] 1.2.840.114 [id number] Univers 13:13:49 13:13:58 Visit Russel Jane 350.1.13 .10 ity of [place] Profess[place] [phone] [address] 2021-05-09 2021-05-09 Outpatient R MAYDA [facility] [id number] Univers 08:00:00 08:00:00 SHARON lozada [facility] 2021-04-09 2021-04-09 Tasneem [facility] 1.2.840.114 [id number] Univers 00:00:00 00:00:00 Sharon Mitchell 350.1.13.10 ity of [place] Profess[place] [phone] [address] 2021-02-05 2021-02-05 Outpatient R KHARI [facility] [id number] Univers 08:00:00 08:00:00 HECTOR neville [facility] 2021-02-04 2021-02-04 Telephone Prabhjot Armstrong 1.2.344.023 [id number] Univers 00:00:00 00:00:00 Simi Rosas 350.1.13.10 ity of [place] 4[place].7.2.[place] [id number] [facility] [address] 2021-01-31 2021-01-31 Hub Inventory Specialist 2, Adc Lab [facility] 1.2.840.114 [id number] Univers 11:32:31 11:47:31 Visit Sharon Ohara 350.1. 13.10 ity of [place].2.[place] Profess[place] [phone] Nj dical nal 353 [facility] 2021-01-31 2021-01-31 Outpatient Octavio OHARA [facility] [id number] Univers 11:15:00 11:15:00 SHARON ity [facility] 2020-12-18 2020-12-18 Ancillary Sophia Rodriguez [facility] 1.2.840 .114 [id number] Univers 09:51:30 10:44:11 Visit Angelo [place] 350.1.13.10 ity of [place] 4[place] Profess[place] [phone] Nj dical nal 179 [facility] 2020-12-11 2020-12-11 Ancillary Sophia Rodriguez [facility] 1.2.840 .114 [id number] Univers 09:55:32 10:35:32 Visit Angelo [place] 350.1.13.10 ity of [place] 4[place].2.[place] Profess[place] [phone] Nj dical nal 179 [facility] 2020-12-11 2020-12-11 Outpatient [facility] [id number] [facility] Univers 10:00:00 10:00:00 ity of [facility] 2020-12-04 2020-12-04 Ancillary Michael Sophia K [facility] 1.2.840 .114 [id number] Univers 09:15:10 10:05:43 Visit Angelo [place] 350.1.13.10 ity of [place] 4[place].2.[place] Profess[place] [phone] Nj dical nal 179 [facility] 2020-11-29 2020-11-29 Ancillary Ranad Pineda [facility] 1 .2.840.114 [id number] Univers 09:57:45 10:38:23 Visit Angelo [place] Stephen 350.1.13.10 ity of [place] Profess[place] [phone] [facility] 179 [facility] 2020-11-29 2020-11-29 Outpatient R [facility] [id number] Univers 10:00:00 10:00:00 ity [facility] 2020-11-13 2020-11-13 Office Ohara, [facility] 1.2.840.114 [id number] Univers 12:12:27 12:13:27 Visit Sharon Mitchell 350.1.13.10 ity of [place] Profess[place] [phone] [facility] 231 [facility] 2020-11-13 2020-11-13 Office Ohara, [facility] 1.2.840.114 [id number] [facility] 09:58:03 12:10:46 Visit Sharon Mitchell 350.1.13.10 ity of [place] 4[place] Profess[place] [phone] [address] 2020-11-13 2020-11-13 Out[facility] [id number] Univers 10:40:00 10:40:00 [facility] 2020-09-21 2020-09-21 Outpatient R SUSANA [facility] [id number] Univers 15:20:00 15:20:00 ABY y [facility] 2020-09-20 2020-09-20 Outpatient [facility] [id number] Univers 08:20:00 08:20:00 SHARON [facility] 2020-08-31 2020-08-31 Outpatient Octavio MEZA [facility] [id number] Univers 16:50:00 16:50:00 ABY [facility] 2020-04-23 2020-04-23 Telephone [facility] 1.2.840.114 [id number] Univers 00:00:00 00:00:00 Sharon Mitchell 350.1.13.10 ity of [place] [phone] [facility] 231 [facility] 2020-04-18 2020-04-18 Urgent Elian Bryson [facility] 1.2.840.114 [id number] Univers 16:21:24 16:41:24 [facility] 350.1.13.10 ity of [place] 4.2.7.2.686 David as Professio [phone] [address] Office [facility] 2020-04-18 2020-04-18 Outpatient R [facility] [id number] Univers 16:40:00 16:40:00 ity of [facility] 2020-03-29 2020-03-29 Outpatient R [facility] [id number] Univers 09:00:00 09:00:00 SHARON ity [facility] 2020-03-27 2020-03-27 Telephone [facility] 1.2.840.114 [id number] Univers 00:00:00 00:00:00 Sharon Mitchell 350.1.13.10 ity of [place] Profess[place] [phone] [address] 2020-03-19 2020-03-19 Office [facility] 1.2.840.114 [id number] Univers 15:49:59 16:24:30 Visit Sharon Mitchell 350.1.13.10 ity of [place] Profess[place] [phone] [address] 2020-03-19 2020-03-19 Outpatient R [facility] [id number] Univers 16:20:00 16:20:00 SHARON landryy [facility] 2020-03-19 2020-03-19 Orders Doctor PLUMMER 1.2.840.114 [id number] Univers 00:00:00 00:00:00 Only Unassigned, ZENAIDA [id number] ity of [place] [facility] 4.2.7.2.686 David as [phone] [address] 2020-03-08 2020-03-08 Outpatient R [facility] [id number] Univers 08:40:00 08:40:00 SHARON lozada [facility] 2020-02-23 2020-02-23 [facility] 1.2.840.114 [id number] Univers 00:00:00 00:00:00 Sharon Mitchell [id number] it[place] [phone] [place]ical nal 044 [facility] 2020-02-02 2020-02-02 Hub Inventory Specialist 2, Adc Lab [facility] 1.2.840.114 [id number] Univers 08:56:00 09:11:00 Visit Sharon Ohara 350.1. 13.10 ity of [place] [phone] [place] dical nal 353 [facility] 2020-02-02 2020-02-02 Outpatient R [facility] [id number] Univers 08:45:00 08:45:00 SHARON lozada [facility] 2020-02-02 2020-02-02 Orders Doctor PLUMMER 1.2.840.114 [id number] Univers 00:00:00 00:00:00 Only Unassigned, ZENAIDA [id number] [facility] 4.2.7.2.686 [place] as [phone] [address] 2019-12-20 2019-12-20 Refill Ohara, [facility] 1.2.840.114 [id number] Univers 00:00:00 00:00:00 Sharon Mitchell [id number] [id number] [phone] [place]ical [place] 044 [facility] 2019-12-19 2019-12-19 Refill Ohara, [facility] 1.2.840.114 [id number] Univers 00:00:00 00:00:00 Sharon Mitchell [id number] ity of [place] [phone] [facility] 231 [facility] 2019-09-08 2019-09-08 Office Mayda [facility] 1.2.840.114 [id number] Univers 06:56:58 07:50:36 Visit Sharon Mitchell [id number] ity of [place] [phone] [address] 2019-04-20 2019-04-20 [facility] 1.2.840.114 [id number] Univers 00:00:00 00:00:00 Sharon Mitchell 350.1.13.10 ity of [place] [phone] [facility] 231 [facility] 2019-04-11 2019-04-11 Orders Doctor ELIAN 1.2.840.114 [id number] Univers 00:00:00 00:00:00 Only Unassigned, ZENAIDA 350.1.13.10 ity of [place] [facility] 4.2.7.2.686 David as [phone] [address] 2019-03-28 2019-03-28 Tasneem Lucia [facility] 1.2.840.114 [id number] Univers 00:00:00 00:00:00 Hector Mitchell 350.1.13.10 i ty of [place] [phone] [facility] 044 [facility] 2019-03-09 2019-03-09 [facility] 1.2.840.114 [id number] Univers 00:00:00 00:00:00 Sharon Mitchell 350.1.13.10 ity of [place] [phone] [facility] 231 [facility] 2019-03-09 2019-03-09 [facility]phone [facility] 1.2.840.114 [id number] Univers 00:00:00 00:00:00 Sharon Haro [place] 350.1.13.10 ity of [place] [phone] [place] 044 [facility] 2019-03-08 2019-03-08 [address]840.114 7 [id number] Univers 00:00:00 00:00:00 Sharon A [place] 350.1.13.10 ity of [place] [phone] [place]ical [place] 231 [facility] 2019-03-07 2019-03-07 [facility] 12.840.114 [id number] [facility] 06:52:27 07:31:38 Visit Sharon Mitchell 350.1.13.10 ity of [place] [phone] [place]ical [place] 231 [facility] 2019-03-07 2019-03-07 [facility] 1.2.840.114 [id number] Univers 00:00:00 00:00:00 Sharon Haro [place] 350.1.13.10 ity of [place] [phone] [place] dical [place] 231 [facility] 2019-03-04 2019-03-04 [facility] 1.2.840.114 [id number] Univers 00:00:00 00:00:00 Sharon A [place] 350.1.13.10 ity of [place] [phone] [place] [address] Results Test Description Test Time Test Comments Results Result Comments Source BASIC METABOLIC PANEL 2022-01-30 05:06:07 Test Item Value Reference Range Interpretation Comme nts SODIUM (BEAKER) (test code 140 meq/L 136-145 = 381) POTASSIUM (BEAKER) (test 3.7 meq/L 3.5-5.1 code = 379) CHLORIDE (BEAKER) (test 107 meq/L 98-107 code = 382) CO2 (BEAKER) (test code = 24 meq/L 22-29 355) BLOOD UREA NITROGEN 13 mg/dL 7-21 (BEAKER) (test code = 354) CREATININE (JACQUELINEAKER) (test 0.88 mg/dL 0.57-1.25 code = 358) GLUCOSE RANDOM (JACQUELINEAKER) 103 mg/dL 70-105 (test code = 652) CALCIUM (BEAKER) (test code 8.5 mg/dL 8.4-10.2 = 697) EGFR (BEAKER) (test code = 83 mL/min/1.73 sq m ESTIMATED GFR IS NOT 1092) ACCURATE CRE ATININE CLEARANCE IN MO EDICTING GLOMERULAR FILT RATION RATE. ESTIMATED GFR IS NOT APPLICABLE FOR DIALYSIS PATIENTS. Engine Head Repairer ID - PIAYA LSARS-CoV2/RT-PCR (Asymptomatic ONLY)2022-01-29 06:00:47 Test Item Value Reference Interpretation Comments Range SARS-COV2/RT-PCR Negative Negative The SARS-Co V-2 (test code = target nucleic 41116-8) acids are not detected in thi s specimen. Negat dontrell results do not preclude SARS-C oV-2 infection and should not be u sed as the sole bas is for patient management decisions. Nega tive results must be combined with clinical observations, patient history , and epidemiolog ical information. A false negative result may occu r if a specimen is improperly collected, transported or handled. This S ARS CoV-2 test is a rapid, real-betina e RT-PCR test intended for th e qualitative detection of nucleic acid fr om SARS-CoV-2 in a nasopharyngeal swab specimen [facility] from individual s suspected of COVID-19 by the ir healthcare provider. DENIA (test code = This test has been DENIA) authorized by FDA under an EUA for use by authorized laboratories. This test is only authorized for the duration of the declaration that circumstances exist justifying the authorization of emergency use of in vitro diagnostic tests for detection and/or diagnosis of COVID-19 under Section 564(b)(1) of the Federal Food, Drug and Cosmetic Act, 21 U.S.C. 360bbb-3(b)(1), unless the authorization is terminated or revoked sooner. Fact Sheet for Healthcare Providers: https://www.[employer]/Documents/Xp ert%20Xpress%20SAR S%20CoV-2/Fact%20S heets/302-3802%20S ARS-COV-2%20HEALTH CARE%20PROVIDERS%2 0FACT%20SHEET.pdf Fact Sheet for Healthcare Patients: https://www.[employer]/Documents/Xp ert%20Xpress%20SAR S%20CoV-2/Fact%20S heets/302-3801%20S ARS-COV-2%20PATIEN T%20FACT%20SHEET.p df Lab Interpretation Normal (test code = 92026-6) [facility]2022-01-29 06:00:47 Test Item Value Reference Range Interpretation Comments SARS-COV2/RT-PCR Negative Negative The SARS-Co V-2 target (test code = nucleic acids a re not 8707227) detected in thi s specimen. Negative result s do not preclude SARS-C oV-2 infection and s hould not be used as the vance e basis for patient managem ent decisions. Nega tive results must be combine d with clinical observ ations, patient history , and epidemiological information. A false negativ e result may occur if a spec imen is improperly karrie ected, transported or handled. This SARS CoV-2 test is a rapid, real-time RT-PC R test intended for th e qualitative detection of nu cleic acid from SARS-CoV-2 in a nasopharyngeal swab specimen collected from individuals suspected of CO VID-19 by their healthcar e provider. This test has been authorized by FDA under an EUA for use by authorized laboratories. This test is only authorized for the duration of the declaration that circumstances exist justifying the authorization of emergency use of in vitro diagnostic tests for detection and/or diagnosis of COVID-19 under Section 564(b)(1) of the Federal Food, Drug and Cosmetic Act, 21 U.S.C. 360bbb-3(b)(1), unless the authorization is terminated or revoked sooner. Fact Sheet for Healthcare Providers: https://www.[employer]/Documents/Xpert%20Xpress%20SARS%20CoV-2/Fact%20Sheets/302-3802%05BAIW-CVK-7%2 0HEALTHCARE%20PROVIDERS%20FACT%20SHEET.pdf Fact Sheet for Healthcare Patients: https://www.[employer]/Documents/Xpert%20X press%20SARS%20CoV-2/Fact%20Sheets/302-3801%22YGBH-UOR-3%20PATIENT%20FACT%20SHEMax Garcia.pdfUrinalysis w/ [id number] 05:21:18 Test Item Value Reference Range Interpretation Comments Color, UA (test code Light Yellow = 5778-6) Clarity, UA (test Clear code = 5767-9) Specific [place], UA 1.018 1.001-1.035 (test code = 5811-5) pH, UA (test code = 7.0 5.0-8.0 5803-2) Protein, UA (test 20 mg/dL Negative A code = 88443-1) Glucose, UA (test Negative Negative code = 365) Ketones, UA (test Negative Negative code = 2514-8) Bilirubin, UA (test Negative Negative code = 99554-2) Blood, UA (test code Large Negative A = 73366-1) Nitrite, UA (test Negative Negative code = 5802-4) Leukocytes, UA (test Moderate Negative A code = 5799-2) Urobilinogen, UA 0.2 mg/dL 0.2-1.0 (test code = 64050-5) RBC, UA (test code = 198 See_Comment [Autom ated 77037-9) message] The system which generated this result transmit john reference range : /HPF. The reference range was not used to interpret this result as normal/abnormal . WBC, UA (test code = 16 See_Comment [Autom ated 5821-4) message] The system which generated this result transmit john reference range : /HPF. The reference range was not used to interpret this result as normal/abnormal . Bacteria, UA (test None Seen code = 70285-7) Mucus (test code = Rare 8247-9) Crystals, Urine (test None Seen code = 33412-2) Specimen Source (test Urine, Mai code = 2795) DENIA (test code = DENIA) Engine Head Repairer ID - [auto]Engine Head Repairer ID - tech Lab Interpretation Abnormal (test code = 27707-0) [facility] [id number] 05:21:18 Test Item Value Reference Range Interpretation Comments COLOR (BEAKER) (test code = 470) Light Yellow CLARITY (BEAKER) (test code = Clear 469) SPECIFIC GRAVITY UA (BEAKER) 1.018 1.001-1.035 (test code = 468) PH UA (BEAKER) (test code = 467) 7.0 5.0-8.0 PROTEIN UA (BEAKER) (test code = 20 mg/dL Negative A 464) GLUCOSE UA (BEAKER) (test code = Negative Negative 365) KETONES UA (BEAKER) (test code = Negative Negative 371) BILIRUBIN UA (BEAKER) (test code Negative Negative = 462) BLOOD UA (BEAKER) (test code = Large Negative A 461) NITRITE UA (BEAKER) (test code = Negative Negative 465) LEUKOCYTE ESTERASE UA (BEAKER) Moderate Negative A (test code = 466) UROBILINOGEN UA (BEAKER) (test 0.2 mg/dL 0.2-1.0 code = 463) RBC UA (BEAKER) (test code = 198 /HPF 519) WBC UA (BEAKER) (test code = 16 /HPF 520) BACTERIA (BEAKER) (test code = None Seen 517) MUCUS (BEAKER) (test code = Rare 1574) CRYSTALS, URINE (BEAKER) (test None Seen code = 1521) SOURCE(BEAKER) (test code = Urine, Mai 5379) Engine Head Repairer ID - [auto]Engine Head Repairer ID - techBASIC METABOLIC [id number] 05:01:19 Test Item Value Reference Range Interpretation Comments SODIUM (BEAKER) 139 meq/L 136-145 (test code = 381) POTASSIUM (BEAKER) 3.9 meq/L 3.5-5.1 (test code = 379) CHLORIDE (BEAKER) 106 meq/L 98-107 (test code = 382) CO2 (BEAKER) (test 24 meq/L 22-29 code = 355) BLOOD UREA NITROGEN 14 mg/dL 7-21 (BEAKER) (test code = 354) CREATININE (BEAKER) 0.89 mg/dL 0.57-1.25 (test code = 358) GLUCOSE RANDOM 97 mg/dL 70-105 (BEAKER) (test code = 652) CALCIUM (BEAKER) 8.8 mg/dL 8.4-10.2 (test code = 697) EGFR (BEAKER) (test 82 mL/min/1.73 ESTIMA JOHN GFR IS code = 1092) sq m NOT ACCURATE CREATININE CLEARANCE IN PREDICTING GLOMERULAR FILTRATION RATE . ESTIMATED GFR I S NOT APPLICABLE FOR DIALYSIS PATIEN TS. Engine Head Repairer ID - MARKUS WPROTHROMBIN TIME/[id number] 04:35:30 Test Item Value Reference Range Interpretation Comments PROTIME (BEAKER) 14.8 seconds 11.9-14.2 H (test code = 759) INR (BEAKER) (test 1.18 See_Comment [Automat ed message] code = 370) The system [employer] generated this result transmitted ref erence range: <=5.90. The reference range was not used to int erpret this result as normal/abnormal . RECOMMENDED COUMADIN/WARFARIN INR THERAPY RANGESSTANDARD DOSE: 2.0 - 3.0 Includes: PROPHYLAXIS for venous thrombosis, systemic embolization; TREATMENT for venous thrombosis and/or pulmonary embolus.HIGH RISK: Target INR is 2.5-3.5 for patients with mechanical heart valves.CBC W/PLT COUNT & AUTO [id number] 04:24:09 Test Item Value Reference Range Interpretation Comments WHITE BLOOD CELL COUNT (BEAKER) 6.1 K/ L 3.5-10.5 (test code = 775) RED BLOOD CELL COUNT (BEAKER) 3.93 M/ L 4.63-6.08 L (test code = 761) HEMOGLOBIN (BEAKER) (test code = 12.3 GM/DL 13.7-17.5 L 410) HEMATOCRIT (BEAKER) (test code = 35.7 % 40.1-51.0 L 411) MEAN CORPUSCULAR VOLUME (BEAKER) 90.8 fL 79.0-92.2 (test code = 753) MEAN CORPUSCULAR HEMOGLOBIN 31.3 pg 25.7-32.2 (BEAKER) (test code = 751) MEAN CORPUSCULAR HEMOGLOBIN CONC 34.5 GM/DL 32.3-36.5 (BEAKER) (test code = 752) RED CELL DISTRIBUTION WIDTH 13.6 % 11.6-14.4 (BEAKER) (test code = 412) PLATELET COUNT (BEAKER) (test 150 K/CU MM 150-450 code = 756) MEAN PLATELET VOLUME (BEAKER) 10.3 fL 9.4-12.4 (test code = 754) NUCLEATED RED BLOOD CELLS 0 /100 WBC 0-0 (BEAKER) (test code = 413) NEUTROPHILS RELATIVE PERCENT 55 % (BEAKER) (test code = 429) LYMPHOCYTES RELATIVE PERCENT 34 % (BEAKER) (test code = 430) MONOCYTES RELATIVE PERCENT 8 % (BEAKER) (test code = 431) EOSINOPHILS RELATIVE PERCENT 2 % (BEAKER) (test code = 432) BASOPHILS RELATIVE PERCENT 1 % (BEAKER) (test code = 437) NEUTROPHILS ABSOLUTE COUNT 3.35 K/ L 1.78-5.38 (BEAKER) (test code = 670) LYMPHOCYTES ABSOLUTE COUNT 2.11 K/ L 1.32-3.57 (BEAKER) (test code = 414) MONOCYTES ABSOLUTE COUNT (BEAKER) 0.50 K/ L 0.30-0.82 (test code = 415) EOSINOPHILS ABSOLUTE COUNT 0.14 K/ L 0.04-0.54 (BEAKER) (test code = 416) BASOPHILS ABSOLUTE COUNT (BEAKER) 0.03 K/ L 0.01-0.08 (test code = 417) IMMATURE GRANULOCYTES-RELATIVE 0 % 0-1 PERCENT (BEAKER) (test code = 2801) POCT URINALYSIS W SPECIFIC [id number] 16:57:00 Test Item Value Reference Range Interpretation Comments POCT U SP GRAV (test code = 1.015 mg/dl 1.005-1.025 5) POCT PH U (test code = 3254) 6 mg/dl 5-8 POCT U LEUK EST (test code = NEGATIVE Negative - Negative 3263) POCT U NIT (test code = 3262) NEGATIVE Negative - Negative POCT U PROT (test code = TRACE Negative - Negative 3259) POCT U GLU (test code = 3256) NEGATIVE Negative - Negative POCT U KETONE (test code = NEGATIVE Negative - Negative 3258) POCT U UROBILI (test code = 4 mg/dl 0.2-1 A 3260) POCT U BILI (test code = MODERATE Negative - Negative 3261) POCT U BLD (test code = 3257) MODERATE Negative - Negative POCT U COLOR (test code = STRAW 3266) POCT U APPEAR (test code = CLOUDY 3267) Lab Interpretation (test code Abnormal = 92420-1) [facility]
--- NOTE | 2023-01-22 17:56 | ER ---
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 Patient complaining of left ankle pain and swelling. Patient states that he tripped and fell. Patient denies hitting his head, no LOC. Pt currently A\T\Ox4,, respirations even and unlabored. Care prior to arrival: None. Mechanism of Injury: Fall tripped and fell. 17:05 Acuity: RAMESH 4 cm10 17:05 Method Of Arrival: Wheelchair cm10 17:08 Coronavirus screen: Vaccine status: Patient reports receiving the 2nd dose of the covid cm10 vaccine. Client denies travel out of the [place] in the last 14 days. At this time, the client does not indicate any symptoms associated with coronavirus-19. Ebola Screen: No symptoms or risks identified at this time. Initial Sepsis Screen: Does the patient meet any 2 criteria? No. Patient's initial sepsis screen is negative. Does the patient have a suspected source of infection? No. Patient's initial sepsis screen is negative. Risk Assessment: Do you want to hurt yourself or someone else? Patient reports no desire to harm self or others. Onset of symptoms was January 22, 2023. Triage Assessment: 17:09 General: Appears in no apparent distress. comfortable, Behavior is calm, cooperative. cm10 Pain: Complains of pain in Left ankle Pain currently is 6 out of 10 on a pain scale. Pain began 1 hour ago. Historical: - Allergies: 17:09 Iodine; cm10 - PMHx: 17:09 Hypertension; Kidney stones; cm10 - Immunization history:: Adult Immunizations unknown. - Social history:: Smoking status: Patient/guardian denies using tobacco, but has a distant history of tobacco abuse. Screenin:43 [facility] ED Fall Risk Assessment (Adult) History of falling in the last 3 months, os including since admission No falls in past 3 months (0 pts) Confusion or Disorientation No (0 pts) Intoxicated or Sedated No (0 pts) Impaired Gait No (0 pts) Mobility Assist Device Used No (0 pt) Altered Elimination No (0 pt) Score/Fall Risk Level 0 - 2 = Low Risk. Abuse screen: Denies threats or abuse. Nutritional screening: No deficits noted. Tuberculosis screening: No symptoms or risk factors identified. Assessment: 17:51 General: Appears in no apparent distress. Behavior is calm, cooperative, appropriate os for age, Smells of Denies fever, feeling ill, fatigue, chills. Pain: Complains of pain in left ankle Pain currently is 7 out of 10 on a pain scale. Neuro: No deficits noted. Cardiovascular: No deficits noted. Respiratory: No deficits noted. Musculoskeletal: Swelling present in left ankle Reports pain in left ankle. Vital Signs: 17:08 BP 134 / 65; Pulse 61; Resp 16; Temp 98.2(TE); Pulse Ox 97% on R/A; Weight 83.46 kg cm10 (R); Height 5 ft. 6 in. (R); Pain 6/10; 18:42 BP 122 / 71; Pulse 63; Resp 17; Pulse Ox 99% on R/A; os 17:08 Body Mass Index 29.70 (83.46 kg, 167.64 cm) cm10 17:08 Pain Scale: Adult cm10 ED Course: 16:51 Patient arrived in ED. mr 16:51 Joselyn Martinez MD is Attending Physician. sp3 17:07 Triage completed. cm10 17:09 Arm band placed on Patient placed in waiting room. cm10 17:42 Sadaf Lynch, RN is Primary Nurse. os 18:04 Ankle Left 3 View XRAY In Process Unspecified. EDMS 18:43 No provider procedures requiring assistance completed. os 18:46 Bed in low position. Call light in reach. Side rails up X 1. Side rails up X2. os 18:46 Patient did not have IV access during this emergency room visit. os Administered Medications: No medications were administered Medication: 18:47 VIS not applicable for this client. os Outcome: 17:55 Discharge ordered by . sp3 18:43 Discharged to home ambulatory. os 18:43 Condition: stable 18:43 Discharge instructions given to patient, family, Instructed on RICE therapy with proper compression wrap 18:47 Patient left the ED. os Signatures: Dispatcher [employer] Kisha Mccabe Martinez, Setul, MD MD sp3 Sadaf Lynch, FRANCES RN os Josey Haas RN RN cm10
--- NOTE | 2023-01-22 17:56 | EDPHYS ---
Physician Documentation [facility] Name: Desean Noland Age: 82 yrs Sex: Male : 1940 Arrival Date: 01/22/2023 Time: 16:48 Bed 9 Private MD: ED Physician Joselyn Martinez HPI: 01/22 17:21 This 82 yrs old Male presents to ER via Wheelchair with complaints of Fall sp3 Injury, Ankle Injury. 17:21 This 82 yrs old Male presents to ER via Wheelchair with complaints of Fall sp3 Injury, Ankle Injury. 17:21 82-year-old male with history of hypertension now presents with mechanical fall and sp3 twist of his right ankle without any other secondary injury. He denies head injury, loss of consciousness, any medical prodrome prior to fall. He was pulling "some limbs" through his backyard and twisted his ankle while going across an obstruction. He is able to ambulate though it hurts when he puts pressure on it. No other secondary injury noted. ROS otherwise negative.. Historical: - Allergies: 17:09 Iodine; cm10 - PMHx: 17:09 Hypertension; Kidney stones; cm10 - Immunization history:: Adult Immunizations unknown. - Social history:: Smoking status: Patient/guardian denies using tobacco, but has a distant history of tobacco abuse. ROS: 17:22 Constitutional: Negative for fever, chills, and weight loss, Eyes: Negative for injury, sp3 pain, redness, and discharge, Neck: Negative for injury, pain, and swelling, Cardiovascular: Negative for chest pain, palpitations, and edema, Respiratory: Negative for shortness of breath, cough, wheezing, and pleuritic chest pain, Abdomen/GI: Negative for abdominal pain, nausea, vomiting, diarrhea, and constipation, Back: Negative for injury and pain, Skin: Negative for injury, rash, and discoloration, Neuro: Negative for headache, weakness, numbness, tingling, and seizure. 17:22 All other systems are negative. Exam: 17:22 Constitutional: This is a well developed, well nourished patient who is awake, alert, sp3 and in no acute distress. Head/Face: Normocephalic, atraumatic. Eyes: Pupils equal round and reactive to light, extra-ocular motions intact. Lids and lashes normal. Conjunctiva and sclera are non-icteric and not injected. Cornea within normal limits. Periorbital areas with no swelling, redness, or edema. Neck: Trachea midline, no thyromegaly or masses palpated, and no cervical lymphadenopathy. Supple, full range of motion without nuchal rigidity, or vertebral point tenderness. No Meningismus. Chest/axilla: Normal chest wall appearance and motion. Nontender with no deformity. No lesions are appreciated. Cardiovascular: Regular rate and rhythm with a normal S1 and S2. No gallops, murmurs, or rubs. Normal PMI, no JVD. No pulse deficits. Respiratory: Lungs have equal breath sounds bilaterally, clear to auscultation and percussion. No rales, rhonchi or wheezes noted. No increased work of breathing, no retractions or nasal flaring. Back: No spinal tenderness. No costovertebral tenderness. Full range of motion. Skin: Warm, dry with normal turgor. Normal color with no rashes, no lesions, and no evidence of cellulitis. Neuro: Awake and alert, GCS 15, oriented to person, place, time, and situation. Cranial nerves II-XII grossly intact. Motor strength 5/5 in all extremities. Sensory grossly intact. Cerebellar exam normal. Normal gait. Psych: Awake, alert, with orientation to person, place and time. Behavior, mood, and affect are within normal limits. 17:22 Musculoskeletal/extremity: Mild pain to the medial malleolus only. Mild swelling noted laterally. No pain on the base of the fifth metatarsal and distal neurovascular exam including cap refill is normal.. Vital Signs: 17:08 BP 134 / 65; Pulse 61; Resp 16; Temp 98.2(TE); Pulse Ox 97% on R/A; Weight 83.46 kg cm10 (R); Height 5 ft. 6 in. (R); Pain 6/10; 18:42 BP 122 / 71; Pulse 63; Resp 17; Pulse Ox 99% on R/A; os 17:08 Body Mass Index 29.70 (83.46 kg, 167.64 cm) cm10 17:08 Pain Scale: Adult cm10 MDM: 17:18 Patient medically screened. sp3 17:23 Data reviewed: vital signs, nurses notes, radiologic studies. ED course: 82-year-old sp3 with right ankle injury. Consider sprain versus fracture although I am not highly suspicious for fracture. X-rays pending. If negative we will place on Gabriel wrap, RICE therapy and discharged home with PCP follow-up.. 17:54 ED course: X-ray demonstrates no significant abnormality. Bone spur is noted in the sp3 calcaneus region. We will safely discharge patient home with Gabriel wrap and general precautions with follow-up to PCP.. 01/22 17:16 Order name: Ankle Left 3 View XRAY sp3 01/22 17:21 Order name: Ice pack; Complete Time: 17:29 sp3 01/22 17:56 Order name: Gabriel Wrap; Complete Time: 18:09 sp3 Administered Medications: No medications were administered Disposition Summary: 01/22/23 17:55 Discharge Ordered Location: Home sp3 Condition: Stable sp3 Diagnosis - Ankle sprain sp3 Followup: sp3 - With: Private Physician - When: Upon discharge from the Emergency Department - Reason: Continuance of care Discharge Instructions: - Discharge Summary Sheet sp3 - Ankle Sprain, [id number] sp3 Forms: - Medication Reconciliation Form sp3 - Thank You Letter sp3 - Antibiotic Education sp3 - Prescription Opioid Use sp3 Signatures: Dispatcher [employer] EDMS Joselyn Martinez MD MD sp3 Josey Haas RN RN cm10
--- NOTE | 2023-01-22 18:09 | RAD REPORT ---
EXAM DESCRIPTION: RAD - Ankle Left 3 View - 01/22/2023 6:03 pm CLINICAL HISTORY: SMASH INJURY COMPARISON: No comparisons FINDINGS: Moderate soft tissue swelling is present about the ankle. No acute fracture or dislocation seen. Large posterior and plantar calcaneal spurs.
[2023-01-22 18:57] VITALS: TEMP 98.2
[2023-01-22 18:59] VITALS: BP 122/71; O2SAT 99
== END 2023-01-22 18:47 | disposition home or self-care (01) ==
LOC: ER 16:48
DX: S93.402A Sprain of unspecified ligament of left ankle, initial encounter (principal); I10 Essential (primary) hypertension; Z91.048 Other nonmedicinal substance allergy status
CPT/HCPCS: 99283